=== PATIENT | male | born 1990 | race Caucasian/White ===

== ENCOUNTER → 2022-06-09 | Outpatient (CLI) | payer OTHER, SELFPAY ==
[2022-06-09 15:01] LABS: Absolute Lymphocyte Count 2.63 X10^3/uL (0.83-4.51); Absolute Neutrophil Count 3.9 X10^3/uL (2.0-7.7); Basophil# 0.08 X10^3/uL; Basophil% 1.1 % (0-1); Eosinophil# 0.09 X10^3/uL; Eosinophils% 1.2 % (0-5); Hematocrit 45.8 % (40-54); Hemoglobin 15.3 g/dL (13.0-16.5); Lymphocyte # 2.63 X10^3/ul (0.83-4.51); Lymphocyte % 36.2 % (19-41); Mean Corp Hgb Conc 33.4 g/dL (32-36); Mean Corpuscular Hgb 29.3 pg (27.0-32.0); Mean Corpuscular Volume 87.7 fL (80-94); Mean Platelet Vol. 9.2 fl (6.2-12.0); Monocyte# 0.59 X10^3/uL; Monocyte% 8.1 % (0-10); NRBC Flagged by Analyzer 0 % (0-5); Neutrophil # 3.87 X10^3/uL (2.7-7.7); Neutrophil % 53.3 % (47-70); Platelet Count 330 K/mm3 (150-450); RBC Distribution Width CV 12.1 % (11.6-14.6); RBC Distribution Width SD 38.5 fl (35.1-43.9); Red Blood Count 5.22 M/mm3 (4.6-6.2); White Blood Count 7.3 K/mm3 (4.4-11.0)
[2022-06-09 15:32] LABS: Vitamin B12 487 pg/mL (211-911)
[2022-06-09 15:39] LABS: ALB/GLOB Ratio 1.2 RATIO (0.9-2.4); AST(SGOT) 17 U/L (15-37); Alanine Aminotransfer ALT/SGPT 26 U/L (16-61); Albumin, Serum 4.2 g/dL (3.2-5.0); Alkaline Phosphatase 91 U/L (45-117); Anion Gap 10 (5-15); BUN 15 mg/dL (7-18); BUN/Creat Ratio 19.4 RATIO (10-20); Calcium,Total 9.2 mg/dL (8.5-10.1); Chloride 100 mmol/L (98-107); Cholesterol 148 mg/dL (200); Creatinine, Serum 0.78 mg/dL (0.70-1.30); EST Glomerular Filtration Rate 122 mL/min (>60); Est Glom Filt Rate - Afr Amer 148 mL/min (>60); Ferritin 59 ng/mL (26-388); Globulin 3.5 g/dL (2.2-4.2); Glucose 88 mg/dL (74-106); High Density Lipoprotein 57 mg/dL; Potassium 3.7 mmol/L (3.5-5.1); Protein, Total 7.7 g/dL (6.4-8.2); Sodium Level 137 mmol/L (136-145); Thyroid Stim Hormone (TSH) 1.11 uIU/mL (0.358-3.74); Triglycerides 109 mg/dL; Very Low Density Lipoprotein 22 mg/dL (5-40)
== END | disposition home or self-care (01) ==
LOC: MFPLAB 12:02
PROVIDERS: Visit Provider Family Medicine
DX: Z00.00 Encounter for general adult medical examination without abnormal findings (principal); Z13.0 Encounter for screening for diseases of the blood and blood-forming organs and certain disorders involving the immune mechanism; R53.83 Other fatigue; Z13.1 Encounter for screening for diabetes mellitus; Z13.220 Encounter for screening for lipoid disorders; Z13.29 Encounter for screening for other suspected endocrine disorder
CPT/HCPCS: 36415; 80053; 80061; 82306; 82607; 82728; 83036; 84443; 85025

== ENCOUNTER → 2023-01-18 | Outpatient (CLI) | payer OTHER, SELFPAY ==
[2023-01-20 11:08] LABS: QNTFERON TB Mitogen Value > 10.00 IU/mL (.); QNTFERON TB Nil Value 0.03 IU/mL (.); QNTFERON TB1+ Ag Value 0.04 IU/mL (.); QNTFERON TB2+ Ag Value 0.03 IU/mL (.); QNTIFERON TB Positive Criteria Negative (Negative)
== END | disposition home or self-care (01) ==
LOC: MTLAB 14:06
PROVIDERS: PCP Family Medicine; Referring Provider Dermatology; Visit Provider Dermatology
DX: L40.0 Psoriasis vulgaris (principal); L40.59 Other psoriatic arthropathy; Z79.899 Other long term (current) drug therapy
CPT/HCPCS: 36415; 86480

== ENCOUNTER 2023-04-07 00:33 | Observation (INO) | payer OTHER, SELFPAY ==
[2023-04-07] VITALS (17 sets, daily range): BP systolic 102–140; BP diastolic 58–80; PULSE 0–91; RESP 12–18; TEMP 36.2–37.2; O2SAT 94–100; BMI 25.5; BMI 24.9
--- NOTE | 2023-04-07 00:51 | CT_ITS ---
INDICATION: RLQ abd pain EXAMINATION: CT Abdomen And Pelvis W/ Contrast Injection TECHNIQUE: Helically acquired images were obtained of the abdomen and pelvis following IV contrast. 2-D reconstructions reviewed. A radiation dose optimization technique was used for this scan. IV Contrast dosage and agent: 100 cc [id number] Oral contrast: None. COMPARISON: None. FINDINGS: LOWER CHEST: No acute findings within the imaged lung bases. Heart size within normal limits. LIVER: Small benign 12 mm cyst versus hemangioma within posterior right lobe of liver. No additional follow-up recommended at this time. GALLBLADDER AND BILIARY TREE: No calcified gallstones identified. No gallbladder wall edema demonstrated. No significant biliary ductal dilation. PANCREAS: No discrete mass or peripancreatic edema. SPLEEN: Normal size without concerning lesion. ADRENAL GLANDS: Unremarkable. KIDNEYS AND URETERS: Normal renal size and position. No perinephric edema or hydronephrosis. No concerning lesion. PERITONEUM: No significant free fluid. No abscess or peritoneal free air detected. RETROPERITONEUM: No retroperitoneal mass or pathologic fluid collection. BOWEL: Dilated and inflamed appendix medial to cecum draped over right external iliac vessels. Appendix measures up to 9 mm diameter with small proximal and distal intraluminal appendicoliths. Obstructing proximal appendicolith measures 6 mm diameter. No bowel obstruction. LYMPH NODES: No enlarged mesenteric or retroperitoneal lymph nodes. VESSELS: No acute findings. No abdominal aortic aneurysm. URINARY BLADDER: Unremarkable as visualized. REPRODUCTIVE ORGANS: No pelvic masses. ABDOMINAL WALL: No acute findings or significant hernia defect. BONES: Endplate spondylosis and mild degenerative disc space narrowing at L4-5. CT/Abdomen/Pelvis W IV Cont ONLY IMPRESSION: 1. Appendicitis with no evidence of perforation. 2. Other nonurgent findings within body of report. N.B. : The above Results were Read Back by Wilber Beyer MD to Dr Nicholas Stapleton MD, and understanding confirmed on 04/07/2023 02:02:21 (ET). Electronically Signed: Wilber Beyer MD at 2:03 EST ,
--- NOTE | 2023-04-07 00:52 | EDS_ITS ---
HPI HPI - GI History of Present Illness Chief Complaint: Abd Pain Informant: patient and spouse/S.O. Abdominal Pain/Flank Pain Onset: Today and Hours Context: Gradual Onset Timing: Continuous Quality: Sharp Location: RLQ Current Severity: Moderate Maximum Severity: Moderate Worsened by: Nothing Relieved by: Nothing Nausea/Vomiting/Emesis GI Symptom: Positive for Nausea Onset: Today Severity: Mild Diarrhea/Melena/Hematochezia GI Symptom: Negative for Diarrhea, Melena or Hematochezia Onset: Today Associated Symptoms Associated Symptoms: Negative for Dysuria, Frequency, Hematuria or Urgency Narrative Narrative: 32-year-old male complaining of periumbilical abdominal pain that began around 6:00 tonight and is radiated down to his right lower quadrant and mildly to his right testicle. Associated nausea. No vomiting or diarrhea. No fever. No dysuria. Prior history of kidney stone but that was 12 years ago and he did not exactly member with that felt like. He denies any prior abdominal surgeries. Prior similar symptoms: No Recent Illness/Hospitalization: No PFSH PFSH Medical History ADHD Alcohol abuse Alcohol use disorder Back problem Bone fracture Drug abuse GERD (gastroesophageal reflux disease) History of emotional problems Kidney stones Opioid use disorder Home Medications cholecalciferol (vitamin D3) 125 mcg (5,000 unit) tablet 125 mcg PO DAILY 06/28/22 [History Last Taken Unknown] multivitamin 1 tab PO DAILY 06/28/22 [History Last Taken Unknown] sertraline 100 mg tablet 150 mg (1.5 x 100 mg) PO DAILY #90 tabs 11/16/22 [Rx Last Taken Unknown] lisdexamfetamine 20 mg capsule 20 mg PO QAM 30 days #30 caps 03/22/23 [Rx Last Taken Unknown] Allergy/AdvReac Type Severity Reaction Status Date / Time No Known Allergies Allergy Verified 04/07/23 00:34 Family History Other Alcoholism High cholesterol Hypertension Surgical History no surgical history no surgical history Social History Smoking Status: Never smoker alcohol intake: never substance use type: does not use what type of physical activity do you participate in: none frequency: 1-2 times per week ROS ROS ED ROS Narrative Abdominal pain. Nausea. Review of Systems ROS Unobtainable: Denies due to encephalopathy Constitutional Constitutional ED: Denies chills or fever(s) ENT ENT ED: Denies ear pain Cardiovascular Cardiovascular: Denies chest pain Respiratory/Chest Respiratory/Chest: Denies cough or dyspnea Gastrointestinal Gastrointestinal: Reports abdominal pain and nausea; Denies constipation, diarrhea, melena or vomiting Genitourinary Genitourinary ED: Denies dysuria or hematuria Musculoskeletal Musculoskeletal: Denies arthralgias Integumentary Denies abscess Neurologic Neurologic: Denies headache(s) Psychiatric Psychiatric: Denies anxiety or depression Endocrine Endocrinology: Denies polydipsia or polyphagia Hematologic/Lymphatic Hematologic/Lymphatic: Denies easy bleeding Allergic/Immunologic Allergic/Immunologic ED: Denies mouth swelling or tongue swelling EXAM Physical Exam Narrative Exam Narrative: 32-year-old male vital signs stable afebrile. No acute distress. H EENT exam unremarkable. Neck nontender. Lungs clear to auscultation bilaterally. Heart regular rhythm rate about 65 no murmur. Chest wall and ribs nontender. Abdomen soft periumbilical and primarily right lower quadrant tenderness. No rebound, guarding or rigidity. Nondistended. No hernia or mass. Soft. Nondistended. No signs of obstruction. Moving all 4 extremities. Back nontender. Neurologically is awake alert no focal motor deficits. Const Vital Signs: 04/07/23 00:33 Temperature 97.6 F L Temperature Source Oral Pulse Rate 66 Respiratory Rate 18 Blood Pressure 140/80 H Blood Pressure Mean 100 Pulse Ox 97 Oxygen Delivery Method Room Air Positive well nourished and well developed; Negative for obese, cachectic, contractures or unkempt General Appearance ED: well developed and NAD; Negative for unkempt, cachectic, contractures or pallor Nutritional Appearance: Negative for cachectic or obese HEENT Reports moist mucous membranes normocephalic and atraumatic; Negative for trauma or tenderness Eyes PERRL and EOMs intact bilaterally General Eye ED: Negative for pale conjunctiva or scleral icterus Neck no lymphadenopathy, supple and no JVD General: Negative for tenderness Carotids: Negative for other Lymph Lymphatic: Negative for other Resp normal respiratory effort and clear to auscultation bilaterally Effort and Inspection: Negative for respiratory distress Auscultation: Negative for rales, rhonchi or wheezes Cardio regular rate, regular rhythm, S1 normal heart sound, S2 normal heart sound and no murmurs Rate: Negative for bradycardia or tachycardic Rhythm: Negative for abnormal rhythm GI non-distended and no masses; Negative for non-tender Inspection: Negative for abdominal distention Palpation: soft and tender; Negative for guarding, rigid, hepatomegaly, splenomegaly, hernia, mass, pulsatile mass or rebound tenderness present Back/Spine no CVA tenderness General Back: Negative for CVA tenderness Cervical Spine: Negative for cervical spine tenderness Thoracic Spine / Upper Back: Negative for thoracic spinal tenderness Lumbar Spine / Lower Back: Negative for lumbar spinal tenderness Coccyx: Negative for other Extremity full ROM General Extremety ED: Negative for edema or tenderness General Extremity: Negative for edema Neuro CN's II-XII intact bilaterally and moves all extremities Sensorium / Orientation: alert, oriented to person, oriented to place and oriented to time; Negative for orientation impaired, confused, lethargic or stuporous Motor Exam: strength 5/5 throughout Psych mental status grossly normal and thought process normal Appearance: Negative for unkempt Attitude: No agitated Mood & Affect: Negative for depressed, anxious or tearful Skin no wounds General Skin Exam: Negative for jaundice or pallor Lesions: no lesions Rashes: no rashes Trauma: Negative for abrasion Nails: Negative for discolored MDM MDM MDM Narrative Medical decision making narrative: 32-year-old male abdominal pain right lower quadrant rule out appendicitis was kidney stone versus other etiologies. CAT scan labs pending. Zofran for nausea. Toradol for pain. He has had a history of abuse in the past and did not want narcotic medications if possible. Repeat exam at 1:35 AM patient doing well. He did throw up once after my initial exam. His pain is improved after the Toradol. He still has pain in the right lower quadrant. I reviewed his CAT scan I think is acute appendicitis. Awaiting the formal radiology interpretation. I did speak to general surgery Dr. Tomasz Canales to help the patient admitted to his service and do surgery in the morning. We will start the patient on IV Zosyn. I have discussed all this with the patient and his they are comfortable with the plan. History & Record Review Discussion w/independent historian: Patient and Family Additional record(s) reviewed:: Prior inpatient record, Prior outpatient record, Prior ED visit and Prior labs Lab Data Attestation: I reviewed the patient's lab results. Lab results narrative: CBC shows a normal white count of 10. H&H of 15 and 44. Platelet count 325. Electrolytes show potassium 3.2 gap of 6 BUN and creatinine of 20 and 1. Glucose 112. Liver enzymes are normal. Lipase is 32. CAT scan shows an acute appendicitis. No perforation. No free air. Labs: Laboratory Results - last 24 hr 04/07/23 04/07/23 00:40 01:32 WBC 10.0 RBC 5.15 Hgb 15.2 Hct 44.1 MCV 85.6 MCH 29.5 MCHC 34.5 RDW Std Deviation 37.7 RDW Coeff of Kath 12.0 Plt Count 325 MPV 8.8 Immature Gran % (Auto) 0.200 Neut % (Auto) 46.1 L Lymph % (Auto) 42.6 H [place] % (Auto) 8.7 Eos % (Auto) 1.6 Baso % (Auto) 0.8 Absolute Neuts (auto) 4.6 Absolute Lymphs (auto) 4.26 Nucleated RBC % 0 Sodium 140 Potassium 3.2 L Chloride 104 Carbon Dioxide 30.0 Anion Gap 6 BUN 20 H Creatinine 1.07 Estim Creat Clear Calc 94.11 Est GFR (MDRD) Af Amer 102 Est GFR (MDRD) Non-Af 84 BUN/Creatinine Ratio 18.7 Glucose 112 H Calcium 9.4 Total Bilirubin 0.30 AST 14 L ALT 25 Alkaline Phosphatase 90 Total Protein 7.6 Albumin 4.0 Globulin 3.6 Albumin/Globulin Ratio 1.1 Lipase 32 Urine Color Yellow Urine Clarity Clear Urine pH 7.0 Ur Specific [place] 1.010 Urine Protein Negative Urine Glucose (UA) Normal Urine Ketones Negative Urine Occult Blood Negative Urine Nitrite Negative Urine Bilirubin Negative Urine Urobilinogen Normal Ur Leukocyte Esterase Negative Discharge Plan Dx/Rx/DC Orders Clinical Impression: History of drug abuse, History of kidney stones, Abdominal pain, Acute appendicitis Disposition Disposition: [facility]
[2023-04-07] MEDS: 0.9% Normal Saline (1000mL) 1,000 ML 999 ML IV (01:00)
[2023-04-07 01:03] LABS: Absolute Lymphocyte Count 4.26 X10^3/uL (0.83-4.51); Absolute Neutrophil Count 4.6 X10^3/uL (2.0-7.7); Basophil# 0.08 X10^3/uL; Basophil% 0.8 % (0-1); Eosinophil# 0.16 X10^3/uL; Eosinophils% 1.6 % (0-5); Hematocrit 44.1 % (40-54); Hemoglobin 15.2 g/dL (13.0-16.5); Lymphocyte # 4.26 X10^3/ul (0.83-4.51); Lymphocyte % 42.6 % (19-41); Mean Corp Hgb Conc 34.5 g/dL (32-36); Mean Corpuscular Hgb 29.5 pg (27.0-32.0); Mean Corpuscular Volume 85.6 fL (80-94); Mean Platelet Vol. 8.8 fl (6.2-12.0); Monocyte# 0.87 X10^3/uL; Monocyte% 8.7 % (0-10); NRBC Flagged by Analyzer 0 % (0-5); Neutrophil # 4.61 X10^3/uL (2.7-7.7); Neutrophil % 46.1 % (47-70); Platelet Count 325 K/mm3 (150-450); RBC Distribution Width SD 37.7 fl (35.1-43.9); Red Blood Count 5.15 M/mm3 (4.6-6.2)
[2023-04-07 01:09] LABS: POSITIVE COUNT NO; POSITIVE DIFFERENTIAL NO; POSITIVE MORPHOLOGY NO
--- OUTSIDE RECORDS SUMMARY | 2023-04-07 01:12 | XMS RPT_ITS | CCD ---
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 Name Role Phone Charis Darden Unavailable [phone] Jacob Hernández Unavailable [phone] NIKOLAY JOYCE Attending Unavailable NIKOLAY JOYCE Referring Unavailable BALBINA FONTENOT Primary Care Unavailable Balbina Fontenot Primary Care Provider [phone] Charis Darden Unavailable [phone] BALBINA FONTENOT Primary Care Unavailable GREG GOMEZ Referring UnavailGREG Perez Admitting Unavaila NELSON Sosa Admitting Unavailable BALBINA FONTENOT Primary Care Unavailable NELSON LOO Referring Unavailable Jacob Hernández Unavailable Nikolay Joyce Unavailable Carmine Ventura Unavailable Balbina Fontenot DO Primary Care Provider Charis Darden MD Unavailable Alena Hung MD Unavailable [phone] Alena Hung MD Unavailable Alena Hung MD Unavailable Charis Darden MD Unavailable BALBINA FONTENOT Primary Care Unavailable JACINTO GUADARRAMA Attending Unavailable BALBINA FONTENOT Attending Unavailable BALBINA FONTENOT Primary Care Unavailable Medications Current Medications Medication Drug Class(es) Dates Sig (Normalized) Sig (Original) 0.5 ml bordetella pertussis filamentous hemagglutinin vaccine, inactivated 0.01 mg/ml / bordetella pertussis fimbriae 2/3 vaccine, inactivated 0.01 mg/ml / bordetella pertussis pertactin vaccine, inactivated 0.006 mg/ml / bordetella pertussis toxoid vaccine, inactivated 0.005 mg/ml / diphtheria toxoid vaccine, inactivated 4 unt/ml / tetanus toxoid vaccine, inactivated 10 unt/ml injection (1 source) Inactivated Corynebacterium Diphtheriae Vaccine, Inactivated Clostridium Tetani Vaccine Start: 05-15-2017 End: 05-15-2017 diptheria, tetanus toxoid, acellular pertusssis (ADACEL) 2 Lf-(2.5-5-3-5 mcg)-5Lf/0.5 mL injection Sign this order in conjunction with the immunization order to satisfy [place] Board of Pharmacy Positive ID requirements for immunization orders. 1 mL 0 05/15/2017 05/15/2017 Active magnesium oxide 400 mg oral tablet (4 sources) Start: 02-01-2021 End: 05-02-2021 take 1 tablet by mouth once daily magnesium oxide (MAG-OX) 400 mg (241.3 mg magnesium) tablet Indications: Tension headache Take 1 (one) tablet (400 mg total) by mouth daily . 90 tablet 0 02/01/2021 05/02/2021 Active omeprazole 40 mg delayed release oral capsule (15 sources) Proton Pump Inhibitor Start: 01-29-2017 End: 10-09-2021 take 1 capsule by mouth once daily omeprazole (PRILOSEC) 40 MG capsule Take 1 (one) capsule (40 mg total) by mouth daily . 90 capsule 1 04/12/2021 10/09/2021 Active sertraline 100 mg oral tablet (17 sources) Serotonin Reuptake Inhibitor Start: 12-01-2020 End: 01-27-2022 take 1 tablet by mouth once daily sertraline (ZOLOFT) 100 MG tablet Indications: Major depressive disorder with single episode, in partial remission (HCC) Take 1 (one) tablet (100 mg total) by mouth daily . 90 tablet 1 04/12/2021 10/09/2021 Active Problems Active Problems Problem Classification Problem Date Documented Date Episodic/Chronic Esophageal disorders (16 sources) Gastroesophageal reflux disease; Translations: [Gastro-esophageal reflux disease without esophagitis] Onset: 11-16-2017 11-16-2017 Chronic Headache; including migraine (2 sources) Tension-type headache; Translations: [Tension-type headache, unspecified, not intractable] Chronic Immunizations and screening for infectious disease (1 source) Vaccination needed; Translations: [Encounter for immunization] Episodic Mood disorders (17 sources) Major depressive disorder; Translations: [Major depression single episode, in partial remission] Onset: 01-21-2019 01-21-2019 Chronic Mood disorders (1 source) Major depressive disorder, single episode, unspecified; Translations: [Major depressive disorder with current active episode, unspecified depression episode severity, unspecified whether recurrent] Unclassified (1 source) Injury of right wrist; Translations: [Injury of right wrist, initial encounter] Past or Other Problems Problem Classification Problem Date Documented Da te Episodic/Chronic Conditions associated with dizziness or vertigo (1 source) Dizziness; Translations: [Dizziness] Episodic Other lower respiratory disease (5 sources) Cough; Translations: [Cough] Onset: 03-17-2020 03-17-2020 Episodic Residual codes; unclassified (1 source) Family history of atrial fibrillation; Translations: [Family history of atrial fibrillation] Episodic Unclassified (20 sources) Patient encounter status; Translations: [Annual physical exam] Onset: 11-16-2017 Resolved: 02-25-2019 11-16-2017 Results Test Name Value Interpretation Reference Range Facil ity Vital Signs Date Time Vital Sign Value Performing Clinician Facility 02-01-2021 [id number] Body height 175.3 cm Balbina Fontenot DO Work Phone: [facility] 02-01-2021 09:11-0400 Body mass index (BMI) [Ratio] 25.84 kg/m2 Balbina Fontenot DO Work Phone: [facility] 02-01-2021 09:11-0400 Body temperature 98.49 [degF] Balbina Fontenot DO Work Phone: [facility] 02-01-2021 09:11-0400 Body weight 79.38 kg Balbina Fontenot DO Work Phone: [facility] 02-01-2021 09:11-0400 Diastolic blood pressure 67 mm[Hg] Balbina Fontenot DO Work Phone: [facility] 02-01-2021 09:11-0400 Heart rate 67 /min Balbina Fontenot DO Work Phone: [facility] 02-01-2021 09:11-0400 Respiratory rate 18 /min Balbina Fontenot DO Work Phone: [facility] 02-01-2021 09:11-0400 SaO2% (BldA) [Mass fraction] 96 % Balbina Fontenot DO Work Phone: [facility] 02-01-2021 09:11-0400 Systolic blood pressure 108 mm[Hg] Balbina Fontenot DO Work Phone: [facility] 02-23-2020 13:06-0500 BMI (Body Mass Index) 25.1 kg/m2 Balbina Fontenot [facility] 02-23-2020 13:06-0500 Body Temperature 97.59 [degF] Balbina Fontenot [facility] 02-23-2020 13:06-0500 Body weight 77.11 kg Balbina Fontenot [facility] 02-23-2020 13:06-0500 BP Diastolic 55 mm[Hg] Balbina Fontenot [facility] 02-23-2020 13:06-0500 BP Systolic 115 mm[Hg] Balbina Fontenot [facility] 02-23-2020 13:06-0500 Height 175.3 cm [facility] 02-23-2020 13:06-0500 Pulse (Heart Rate) 60 /[facility] 13:06-0500 Pulse Oximetry 97 % [facility] 01-05-2020 15:19-0400 BMI (Body Mass Index) 24.72 kg/m2 [facility] 01-05-2020 15:19-0400 Body Temperature 98.29 [degF] Balbina Fontenot [facility] 01-05-2020 15:19-0400 Body weight 75.93 kg [facility] 01-05-2020 15:19-0400 BP Diastolic 75 mm[Hg] [facility] 01-05-2020 15:19-0400 BP Systolic 115 mm[Hg] Balbina Fontenot [facility] 01-05-2020 15:19-0400 Height 175.3 cm Balbina Fontenot [facility] 01-05-2020 15:19-0400 Pulse (Heart Rate) 55 /min Balbina Fontenot [facility] 01-05-2020 15:19-0400 Pulse Oximetry 96 % [facility]-25-2019 08:08-0500 BMI (Body Mass Index) 25.77 kg/m2 [facility] 02-25-2019 08:08-0500 Body Temperature 98.2 [degF] [facility] 02-25-2019 08:08-0500 Body weight 78.02 kg [facility] 02-25-2019 08:08-0500 BP Diastolic 73 mm[Hg] [facility] 02-25-2019 08:08-0500 BP Systolic 128 mm[Hg] [facility] 02-25-2019 08:08-0500 Height 174 cm [facility] 02-25-2019 08:08-0500 Pulse (Heart Rate) 52 /min [facility] 02-25-2019 08:08-0500 Pulse Oximetry 94 % [facility] 02-25-2019 08:08-0500 Respiratory Rate 16 /min [facility] 01-21-2019 14:55-0400 BMI (Body Mass Index) 25.88 kg/m2 Balbina [facility] 01-21-2019 14:55-0400 Body Temperature 98.29 [degF] [facility] 01-21-2019 14:55-0400 Body weight 78.34 kg [facility] 01-21-2019 14:55-0400 BP Diastolic 83 mm[Hg] Balbina [facility] 01-21-2019 14:55-0400 BP Systolic 146 mm[Hg] [facility] 01-21-2019 14:55-0400 Height 174 cm [facility] 01-21-2019 14:55-0400 Pulse (Heart Rate) 76 /min [facility] 01-21-2019 14:55-0400 Pulse Oximetry 97 % [facility] 11-25-2018 13:01-0400 BMI (Body Mass Index) 24.83 kg/m2 Balbina Fontenot [facility] 11-25-2018 13:01-0400 Body Temperature 98.2 [degF] Balbina Fontenot [facility] 11-25-2018 13:01-0400 Body weight 75.16 kg Balbina Fontenot [facility] 11-25-2018 13:01-0400 BP Diastolic 74 mm[Hg] Balbina Fontenot [facility] 11-25-2018 13:01-0400 BP Systolic 115 mm[Hg] Balbina Fontenot [facility] 11-25-2018 13:01-0400 Height 174 cm Balbina Fontenot [facility] 11-25-2018 13:01-0400 Pulse (Heart Rate) 49 /min Balbina Fontenot [facility] 11-25-2018 13:01-0400 Pulse Oximetry 98 % Balbina Fontenot [facility] 11-16-2017 09:04-0400 BMI (Body Mass Index) 24.63 kg/m2 Jacob Hernández [facility] 11-16-2017 09:04-0400 Body Temperature 98.2 [degF] Jacob Hernández [facility] 11-16-2017 09:04-0400 BP Diastolic 73 mm[Hg] Jacob Hernández [facility] 11-16-2017 09:04-0400 BP Systolic 116 mm[Hg] Jacob Hernández [facility] 11-16-2017 09:04-0400 Height 172.7 cm Jacob Hernández [facility] 11-16-2017 09:04-0400 Pulse (Heart Rate) 56 /min Jacob Hernández [facility] 11-16-2017 09:04-0400 Pulse Oximetry 95 % Jacob Hernández [facility] 11-16-2017 09:04-0400 Weight 73.48 kg Jacob Hernández [facility] 05-15-2017 07:41-0500 BMI (Body Mass Index) 24.66 kg/m2 Charis Darden [facility] Work Phone: 05-15-2017 07:41-0500 Body Temperature 97.7 [degF] Charis Darden [facility] Work Phone: 05-15-2017 07:41-0500 BP Diastolic 70 mm[Hg] Charis Darden [facility] Work Phone: 05-15-2017 07:41-0500 BP Systolic 105 mm[Hg] Charis Darden [facility] Work Phone: 05-15-2017 07:41-0500 Height 175.3 cm Charis Darden [facility] Work Phone: 05-15-2017 07:41-0500 Pulse (Heart Rate) 47 /min Charisana Darden [facility] Work Phone: 05-15-2017 07:41-0500 Pulse Oximetry 94 % Charis Darden [facility] Work Phone: 05-15-2017 07:41-0500 Respiratory Rate 16 /min Charisana Darden [facility] Work Phone: 05-15-2017 07:41-0500 Weight 75.75 kg Charisana Darden [facility] Work Phone: Encounters Encounter Date Encounter Type Care Provider Facility Start: 04-12-2021 Refill Balbina young DO Work Phone: [facility] Physicians Procedures Date Procedure Procedure Detail Performing Clinician Start: 07-21-2019 Radex wrist complete minimum 3 views Osvaldo Schwartz Work Phone: Start: 01-21-2019 Adult depression screening assessment Balbina Fontenot Start: 11-25-2018 12 lead ECG Balbina post Work Phone: Start: 11-25-2018 Adult depression screening assessment Balbina Fontenot Plan of Treatment Date Care Activity Detail Author Start: 05-15-2027 Tetanus vaccination [facility] Start: 02-01-2022 History and physical examination, annual for health maintenance Wellness Visit [facility] Start: 12-02-2021 Depression Remission Assessment (PHQ9) Depression Remission Assessment (PHQ9) [facility] Start: 01-04-2021 History and physical examination, annual for health maintenance Wellness Visit [facility] Start: 01-04-2021 End: 01-04-2021 Patient encounter procedure 01/04/2021 Office Visit Primary Care Balbina Fontenot, [address] [place] [address] Dr Farmer [address] [place] [address] [facility] Start: 12-08-2020 Influenza vaccination Sequential Influenza Vaccine (#1) [facility] Start: 01-22-2020 Depression screening using PHQ-9 (Patient Health Questionnaire 9) score DEPRESSION SCREENING (PHQ9) [facility] Start: 12-09-2019 Influenza vaccination given Sequential Influenza Vaccine (#1) [facility] Start: 11-26-2019 Depression screening using PHQ-9 (Patient Health Questionnaire 9) score DEPRESSION SCREENING (PHQ9) [facility] Start: 11-26-2019 History and physical examination, annual for health maintenance Wellness Visit [facility] Start: 11-22-2019 Depression Remission Assessment (PHQ9) Depression Remission Assessment (PHQ9) [facility] Start: 02-25-2019 End: 02-25-2019 Office Visit 02/25/2019 Office Visit Primary Care Balbina Fontenot, [address] Farmer [address] [place] [id number] [phone] [facility] Start: 12-08-2018 Influenza vaccination given Sequential Influenza Vaccine (#1) [facility] Start: 11-16-2018 History and physical examination, annual for health maintenance Wellness Visit [facility] Start: 12-08-2017 Influenza vaccination SEQUENTIAL INFLUENZA VACCINE (#1) [facility] Start: 2006 Hepatitis C antibody, confirmatory test Hepatitis C Screening [facility] Start: 2006 Hepatitis C screening Hepatitis C Screening [facility] Start: 12-22-2003 HIV screening HIV Screening [facility] Start: 2000 COVID-19 Vaccine (1) COVID-19 Vaccine (1) [facility] Start: 1988 Screening for substance abuse SUBSTANCE ABUSE SCREENING (AUDIT-C) [facility] End: 11-26-2019 Complete blood count (hemogram) panel - Blood by Automated count CBC Lab Routine Annual physical exam Dizziness 1 Occurrences starting 11/25/2018 until 11/26/2019 [facility] Immunizations Immunization Date Immunization Notes Care Provider Fa ciliata 04-11-2021 Pfizer SARS-CoV-2 Vaccination Jacinto Guadarrama MA [facility] 04-11-2021 COVID-19 vacc,mRNA,Pfizer,,PF, (PFIZER-BIONTECH COVID-19 VACCINE) injection Jacinto Guadarrama MA [facility] 02-01-2021 influenza, injectabl e, quadrivalent, preservative free Balbina Fontenot DO Work Phone: [facility] 02-01-2021 flu vacc [id number] mos up,PF, (FLUZONE QUAD) injection Balbina Fontenot DO Work Phone: [facility] 05-15-2017 tetanus toxoid, redu gini diphtheria toxoid, and acellular pertussis vaccine, adsorbed; Translations: [TDAP] Charis Darden [facility] 11-17-2011 hepatitis B vaccine, adult dosage Balbina Fontenot DO Work Phone: [facility] 11-17-2011 tetanus toxoid, redu gini diphtheria toxoid, and acellular pertussis vaccine, adsorbed Balbina Fontenot DO Work Phone: [facility] Payers Date Payer Category Payer Unknown [id number] 2019 Unknown SUHA MCCARTHY/PREF/HMO/PPO xxxxxxxxxxxx 2019-Present xxxxxxxxxxxx [id number] 2019 Unknown [id number] 2019 Unknown SUHA MCCARTHY/PREF/HMO/PPO [id number] 2019-Present [phone] [address] [place] [address] [id number] 2015 Unknown xxxxxxxxx [id number] 1988 Unknown [id number] 1988 Unknown [id number] 1988 Unknown [id number] 1988 Unknown [id number] 1988 Unknown [id number] Unknown [id number] Social History Date Type Detail Facility Start: 06-13-2016 End: 05-15-2017 Tobacco smoking status NHIS Never smoker [facility] Start: 1990 Sex Assigned At Not on file [facility] [employer] Work Phone: Start: 02-25-2019 End: 02-01-2021 Alcohol intake Current drinker of alcohol (finding) [facility] Start: 01-21-2019 End: 02-01-2021 History SDOH Social Connections Get Together 3 [facility] Start: 11-25-2018 End: 02-01-2021 History SDOH Food Worry 1 [facility] Start: 06-13-2016 Alcohol Comment 2-3 drinks 2-3 times a week [facility] Start: 06-13-2016 End: 01-05-2020 Tobacco use and exposure Never used [facility] Start: 01-05-2020 End: 02-01-2021 History SDOH Financial 5 [facility] Start: 01-05-2020 End: 02-01-2021 History SDOH Transport Med 2 [facility] Exposure to SARS-CoV -2 (event) Not sure [facility] Start: 11-25-2018 History SDOH Social Connections Get Together 4 [facility] History of Present illness Narrative 02-03-2021 Judith Storm MD - 02/03/2021 11:17 AM Marie Fontenot DO - 02/01/2021 9:14 AM EDT Note Date & Type Note Facility 02-03-2021 History of Presen t illness Narrative I have personally seen and examined the patient independently of the resident physician. I have reviewed the history, physical, diagnosis and care plan with the resident physician, Balbina Fontenot DO. I confirm the assessment and treatment plan: Diagnoses and all orders for this visit: Encounter for wellness examination in adult - Influenza IIV4 6mo or >,Fluzone Quad Tension headache - magnesium oxide (MAG-OX) 400 mg (241.3 mg magnesium) tablet; Take 1 (one) tablet (400 mg total) by mouth daily . Major depressive disorder with single episode, in partial remission (HCC) - sertraline (ZOLOFT) 100 MG tablet; Take 1 (one) tablet (100 mg total) by mouth daily . Assessment/Plan: This is a 30-year-old male with history of anxiety/depression who presents for physical and headaches. Diagnoses and all orders for this visit: Encounter for wellness examination in adult - Influenza IIV4 6mo or >,Fluzone Quad Noted relatively healthy BMI and blood pressure Encourage patient to resume routine physical activity as life circumstances allow Encouraged healthful dietary habits Discussed blood screenings, given lack of medical comorbidities patient defers today Okay to update flu shot today Otherwise up-to-date on routine screenings and vaccinations Repeat physical in 1 year Tension headache - magnesium oxide (MAG-OX) 400 mg (241.3 mg magnesium) tablet; Take 1 (one) tablet (400 mg total) by mouth daily . Presentation most consistent with tension type headaches I do suspect this is due to disturbed sleep habits and increased life stressor after the of his recent child No red flag symptoms We did recommend sleep hygiene, gentle neck stretching as much as possible We will also give magnesium for a short course to see if this can help reduce intensity and frequency of headaches Follow-up in 2 to 3 months or sooner if headaches worsening or changing Major depressive disorder with single episode, in partial remission (HCC) - sertraline (ZOLOFT) 100 MG tablet; Take 1 (one) tablet (100 mg total) by mouth daily . Symptoms still present but not severe Patient is happy with Zoloft therapy I do think his headache and sleep disturbances are somewhat contributing to this issue Treatment for headache as above Did distribute resources for counseling Follow-up in 2 to 3 months or sooner if new issues Subjective: Jacob Rojas is a 30 y.o. 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 Similar to previous Drinks: Up to 2 cups of coffee a day, 48 ounces of water per day Vitamins/Supplements: None Exercise: Not much exercise currently, gym 1-2 times per month, also walks a dog Sleep: Denies snoring, goes to bed at 9, gets up at 7, has a baby he wakes for twice at night Caffeine: 2 cups of coffee per day Mood: Episodes of depression still an issue, some low motivation and exhaustion, decreased mood intermittently. Zoloft is helping. No red flag symptoms. Alcohol: Recovered drinker, no alcohol recently Smoking: No Drug Use: Denies Immunizations: Wants flu shot today Headaches Patient reports that for about the last month, he has began to develop a left-sided headache. It is dull to throbbing in nature. It starts in his left occipital region and seems to band around to his frontal region. It improves with ibuprofen. There is no associated photophobia, nausea, vomiting, visual disturbance, weakness, numbness, or other neurological deficit. He has no known history of migraines or severe head injuries. Of note, his daughter was born roughly 1 month ago. He does wake up twice nightly to help provide care for the infant. He does admit to some added stress in his life, and thinks this may be contributing. The following portions of the patient's history were reviewed and updated as appropriate: allergies, current medications, past family history, past medical history, past social history, past surgical history and problem list. Review of Systems Constitutional: Negative for activity change and fever. HENT: Negative for hearing loss and sore throat. Eyes: Negative for visual disturbance. Respiratory: Negative for cough, chest tightness, shortness of breath and wheezing. Cardiovascular: Negative for chest pain. Genitourinary: Negative for difficulty urinating and dysuria. Musculoskeletal: Negative for joint swelling. Skin: Negative for rash. Neurological: Positive for headaches. Negative for dizziness, weakness and numbness. Psychiatric/Behavioral: Positive for dysphoric mood and sleep disturbance. Negative for self-injury and suicidal ideas. The patient is not nervous/anxious and is not hyperactive. All other systems reviewed and are negative. Objective: PACU Vitals 02/01/21 0911 BP: 108/67 Pulse: 67 Resp: 18 Temp: 98.5 F (36.9 C) SpO2: 96% Physical Exam Vitals and nursing note reviewed. Constitutional: General: He is not in acute distress. Appearance: He is well-developed. He is not diaphoretic. Comments: Patient appears tired HENT: Head: Normocephalic and atraumatic. Mouth/Throat: Pharynx: No oropharyngeal exudate. Eyes: General: Right eye: No discharge. Left eye: No discharge. Conjunctiva/sclera: Conjunctivae normal. Pupils: Pupils are equal, round, and reactive to light. Cardiovascular: Rate and Rhythm: Normal rate and regular rhythm. Heart sounds: Normal heart sounds. No murmur heard. No friction rub. No gallop. Pulmonary: Effort: Pulmonary effort is normal. No respiratory distress. Breath sounds: Normal breath sounds. No wheezing or rales. Abdominal: General: Bowel sounds are normal. Palpations: Abdomen is soft. There is no mass. Tenderness: There is no abdominal tenderness. There is no guarding. Musculoskeletal: General: No deformity. Normal range of motion. Skin: General: Skin is warm and dry. Findings: No erythema or rash. Neurological: Mental Status: He is alert and oriented to person, place, and time. Sensory: No sensory deficit. Motor: No abnormal muscle tone. Coordination: Coordination normal. Psychiatric: Behavior: Behavior normal. Thought Content: Thought content normal. Judgment: Judgment normal. Hearing and vision grossly normal. For any new medications prescribed today, patient was educated about indications for the medication, how to take the medication and potential side effects of the medications. This note was written partially with [employer] dictation software. Though attempts are made to proofread, errors in grammar or spelling may be present. Depression Screening 11/25/2018 01/21/2019 02/01/2021 Little interest or pleasure in doing things 1 2 1 Feeling down, depressed, or hopeless 1 1 2 PHQ-2 Total Score 2 3 3 Trouble falling or staying asleep, or sleeping too much 1 2 2 Feeling tired or having little energy 1 3 1 Poor appetite or overeating 2 2 2 Feeling bad about yourself - or that you are a failure or have let yourself or your family down 1 2 2 Trouble concentrating on things, such as reading the newspaper or watching television 1 3 2 Moving or speaking so slowly that other people could have noticed. Or the opposite - being so fidgety or restless that you have been moving around a lot more than usual 0 0 0 Thoughts that you would be better off , or of hurting yourself in some way 0 0 0 PHQ-9 Total Score 8 15 12 If you checked off any problems, how difficult have these problems made it for you to do your work, take care of things at home, or get along with other people? Somewhat difficult Somewhat difficult Somewhat difficult documented in this encounter [facility] Instructions 02-01-2021 Patient Instructions Note Date & Type Note Facility 02-01-2021 Instructions Balbina Fontenot DO - 02/01/2021 9:35 AM EDT Images from the original note were not included. Neck: Exercises Introduction Here are some examples of exercises for you to try. The exercises may be suggested for a condition or for rehabilitation. Start each exercise slowly. Ease off the exercises if you start to have pain. You will be told when to start these exercises and which ones will work best for you. How to do the exercises Neck stretch 1. This stretch works best if you keep your shoulder down as you lean away from it. To help you remember to do this, start by relaxing your shoulders and lightly holding on to your thighs or your chair. 2. Tilt your head toward your shoulder and hold for 15 to 30 seconds. Let the weight of your head stretch your muscles. 3. If you would like a little added stretch, use your hand to gently and steadily pull your head toward your shoulder. For example, keeping your right shoulder down, lean your head to the left. 4. Repeat 2 to 4 times toward each shoulder. Diagonal neck stretch 1. Turn your head slightly toward the direction you will be stretching, and tilt your head diagonally toward your chest and hold for 15 to 30 seconds. 2. If you would like a little added stretch, use your hand to gently and steadily pull your head forward on the diagonal. 3. Repeat 2 to 4 times toward each side. Dorsal glide stretch The dorsal glide stretches the back of the neck. If you feel pain, do not glide so far back. Some people find this exercise easier to do while lying on their backs with an ice pack on the neck. 1. Sit or stand tall and look straight ahead. 2. Slowly tuck your chin as you glide your head backward over your body 3. Hold for a count of 6, and then relax for up to 10 seconds. 4. Repeat 8 to 12 times. Chest and shoulder stretch 1. Sit or stand tall and glide your head backward as in the dorsal glide stretch. 2. Raise both arms so that your hands are next to your ears. 3. Take a deep breath, and as you breathe out, lower your elbows down and behind your back. You will feel your shoulder blades slide down and together, and at the same time you will feel a stretch across your chest and the front of your shoulders. 4. Hold for about 6 seconds, and then relax for up to 10 seconds. 5. Repeat 8 to 12 times. Strengthening: Hands on head 1. Move your head backward, forward, and side to side against gentle pressure from your hands, holding each position for about 6 seconds. 2. Repeat 8 to 12 times. Follow-up care is a smith part of your treatment and safety. Be sure to make and go to all appointments, and call your doctor if you are having problems. It's also a good idea to know your test results and keep a list of the medicines you take. Where can you learn more? Log into your personal health record on [email or web address] and enter P975 in the Education box to learn more about Neck: Exercises. Current as of: October 07, 2020 Content Version: 13.0 [employer]. Care instructions adapted under license by your healthcare professional. If you have questions about a medical condition or this instruction, always ask your healthcare professional. [employer] disclaims any warranty or liability for your use of this information. Learning About Sleeping Well What does sleeping well mean? Sleeping well means getting enough sleep. How much sleep is enough varies among people. The number of hours you sleep is not as important as how you feel when you wake up. If you do not feel refreshed, you probably need more sleep. Another sign of not getting enough sleep is feeling tired during the day. The average total nightly sleep time is 7 to 8 hours. Healthy adults may need a little more or a little less than this. Why is getting enough sleep important? Getting enough quality sleep is a basic part of good health. When your sleep suffers, your mood and your thoughts can suffer too. You may find yourself feeling more grumpy or stressed. Not getting enough sleep also can lead to serious problems, including injury, accidents, anxiety, and depression. What might cause poor sleeping? Many things can cause sleep problems, including: Stress. Stress can be caused by fear about a single event, such as giving a speech. Or you may have ongoing stress, such as worry about work or school. Depression, anxiety, and other mental or emotional conditions. Changes in your sleep habits or surroundings. This includes changes that happen where you sleep, such as noise, light, or sleeping in a different bed. It also includes changes in your sleep pattern, such as having jet lag or working a late shift. Health problems, such as pain, breathing problems, and restless legs syndrome. Lack of regular exercise. How can you help yourself? Here are some tips that may help you sleep more soundly and wake up feeling more refreshed. Your sleeping area Use your bedroom only for sleeping and sex. A bit of light reading may help you fall asleep. But if it doesn't, do your reading elsewhere in the house. Don't watch TV in bed. Be sure your bed is big enough to stretch out comfortably, especially if you have a sleep partner. Keep your bedroom quiet, dark, and cool. Use curtains, blinds, or a sleep mask to block out light. To block out noise, use earplugs, soothing music, or a white noise machine. Your evening and bedtime routine Create a relaxing bedtime routine. You might want to take a warm shower or bath, listen to soothing music, or drink a cup of noncaffeinated tea. Go to bed at the same time every night. And get up at the same time every morning, even if you feel tired. What to avoid Limit caffeine (coffee, tea, caffeinated sodas) during the day, and don't have any for at least 4 to 6 hours before bedtime. Don't drink alcohol before bedtime. Alcohol can cause you to wake up more often during the night. Don't smoke or use tobacco, especially in the evening. Nicotine can keep you awake. Don't take naps during the day, especially close to bedtime. Don't lie in bed awake for too long. If you can't fall asleep, or if you wake up in the middle of the night and can't get back to sleep within 15 minutes or so, get out of bed and go to another room until you feel sleepy. Don't take medicine right before bed that may keep you awake or make you feel hyper or energized. Your doctor can tell you if your medicine may do this and if you can take it earlier in the day. If you can't sleep Imagine yourself in a peaceful, pleasant scene. Focus on the details and feelings of being in a place that is relaxing. Get up and do a quiet or boring activity until you feel sleepy. Don't drink any liquids after 6 p.m. if you wake up often because you have to go to the bathroom. Where can you learn more? Log into your personal health record on [email or web address] and enter J942 in the Education box to learn more about Learning About Sleeping Well. Current as of: September 22, 2020 Content Version: 13.0 [employer]. Care instructions adapted under license by your healthcare professional. If you have questions about a medical condition or this instruction, always ask your healthcare professional. [employer] disclaims any warranty or liability for your use of this information. documented in this encounter [facility] Instructions 02-01-2021 Patient Instructions Note Date & Type Note Facility 02-01-2021 Instructions Balbina Fontenot DO - 02/01/2021 9:35 AM EDT Images from the original note were not included. Neck: Exercises Introduction Here are some examples of exercises for you to try. The exercises may be suggested for a condition or for rehabilitation. Start each exercise slowly. Ease off the exercises if you start to have pain. You will be told when to start these exercises and which ones will work best for you. How to do the exercises Neck stretch 1. This stretch works best if you keep your shoulder down as you lean away from it. To help you remember to do this, start by relaxing your shoulders and lightly holding on to your thighs or your chair. 2. Tilt your head toward your shoulder and hold for 15 to 30 seconds. Let the weight of your head stretch your muscles. 3. If you would like a little added stretch, use your hand to gently and steadily pull your head toward your shoulder. For example, keeping your right shoulder down, lean your head to the left. 4. Repeat 2 to 4 times toward each shoulder. Diagonal neck stretch 1. Turn your head slightly toward the direction you will be stretching, and tilt your head diagonally toward your chest and hold for 15 to 30 seconds. 2. If you would like a little added stretch, use your hand to gently and steadily pull your head forward on the diagonal. 3. Repeat 2 to 4 times toward each side. Dorsal glide stretch The dorsal glide stretches the back of the neck. If you feel pain, do not glide so far back. Some people find this exercise easier to do while lying on their backs with an ice pack on the neck. 1. Sit or stand tall and look straight ahead. 2. Slowly tuck your chin as you glide your head backward over your body 3. Hold for a count of 6, and then relax for up to 10 seconds. 4. Repeat 8 to 12 times. Chest and shoulder stretch 1. Sit or stand tall and glide your head backward as in the dorsal glide stretch. 2. Raise both arms so that your hands are next to your ears. 3. Take a deep breath, and as you breathe out, lower your elbows down and behind your back. You will feel your shoulder blades slide down and together, and at the same time you will feel a stretch across your chest and the front of your shoulders. 4. Hold for about 6 seconds, and then relax for up to 10 seconds. 5. Repeat 8 to 12 times. Strengthening: Hands on head 1. Move your head backward, forward, and side to side against gentle pressure from your hands, holding each position for about 6 seconds. 2. Repeat 8 to 12 times. Follow-up care is a smith part of your treatment and safety. Be sure to make and go to all appointments, and call your doctor if you are having problems. It's also a good idea to know your test results and keep a list of the medicines you take. Where can you learn more? Log into your personal health record on [email or web address] and enter P975 in the Education box to learn more about Neck: Exercises. Current as of: October 07, 2020 Content Version: 13.0 [employer]. Care instructions adapted under license by your healthcare professional. If you have questions about a medical condition or this instruction, always ask your healthcare professional. [employer] disclaims any warranty or liability for your use of this information. Learning About Sleeping Well What does sleeping well mean? Sleeping well means getting enough sleep. How much sleep is enough varies among people. The number of hours you sleep is not as important as how you feel when you wake up. If you do not feel refreshed, you probably need more sleep. Another sign of not getting enough sleep is feeling tired during the day. The average total nightly sleep time is 7 to 8 hours. Healthy adults may need a little more or a little less than this. Why is getting enough sleep important? Getting enough quality sleep is a basic part of good health. When your sleep suffers, your mood and your thoughts can suffer too. You may find yourself feeling more grumpy or stressed. Not getting enough sleep also can lead to serious problems, including injury, accidents, anxiety, and depression. What might cause poor sleeping? Many things can cause sleep problems, including: Stress. Stress can be caused by fear about a single event, such as giving a speech. Or you may have ongoing stress, such as worry about work or school. Depression, anxiety, and other mental or emotional conditions. Changes in your sleep habits or surroundings. This includes changes that happen where you sleep, such as noise, light, or sleeping in a different bed. It also includes changes in your sleep pattern, such as having jet lag or working a late shift. Health problems, such as pain, breathing problems, and restless legs syndrome. Lack of regular exercise. How can you help yourself? Here are some tips that may help you sleep more soundly and wake up feeling more refreshed. Your sleeping area Use your bedroom only for sleeping and sex. A bit of light reading may help you fall asleep. But if it doesn't, do your reading elsewhere in the house. Don't watch TV in bed. Be sure your bed is big enough to stretch out comfortably, especially if you have a sleep partner. Keep your bedroom quiet, dark, and cool. Use curtains, blinds, or a sleep mask to block out light. To block out noise, use earplugs, soothing music, or a white noise machine. Your evening and bedtime routine Create a relaxing bedtime routine. You might want to take a warm shower or bath, listen to soothing music, or drink a cup of noncaffeinated tea. Go to bed at the same time every night. And get up at the same time every morning, even if you feel tired. What to avoid Limit caffeine (coffee, tea, caffeinated sodas) during the day, and don't have any for at least 4 to 6 hours before bedtime. Don't drink alcohol before bedtime. Alcohol can cause you to wake up more often during the night. Don't smoke or use tobacco, especially in the evening. Nicotine can keep you awake. Don't take naps during the day, especially close to bedtime. Don't lie in bed awake for too long. If you can't fall asleep, or if you wake up in the middle of the night and can't get back to sleep within 15 minutes or so, get out of bed and go to another room until you feel sleepy. Don't take medicine right before bed that may keep you awake or make you feel hyper or energized. Your doctor can tell you if your medicine may do this and if you can take it earlier in the day. If you can't sleep Imagine yourself in a peaceful, pleasant scene. Focus on the details and feelings of being in a place that is relaxing. Get up and do a quiet or boring activity until you feel sleepy. Don't drink any liquids after 6 p.m. if you wake up often because you have to go to the bathroom. Where can you learn more? Log into your personal health record on [email or web address] and enter J942 in the Education box to learn more about Learning About Sleeping Well. Current as of: September 22, 2020 Content Version: 13.0 [employer]. Care instructions adapted under license by your healthcare professional. If you have questions about a medical condition or this instruction, always ask your healthcare professional. [employer] disclaims any warranty or liability for your use of this information. documented in this encounter [facility] History of Present illness Narrative 02-01-2021 Balbina Fontenot DO - 02/01/2021 9:14 AM EDT Note Date & Type Note Facility 02-01-2021 History of Presen t illness Narrative Assessment/Plan: This is a 30-year-old male with history of anxiety/depression who presents for physical and headaches. Diagnoses and all orders for this visit: Encounter for wellness examination in adult - Influenza IIV4 6mo or >,Fluzone Quad Noted relatively healthy BMI and blood pressure Encourage patient to resume routine physical activity as life circumstances allow Encouraged healthful dietary habits Discussed blood screenings, given lack of medical comorbidities patient defers today Okay to update flu shot today Otherwise up-to-date on routine screenings and vaccinations Repeat physical in 1 year Tension headache - magnesium oxide (MAG-OX) 400 mg (241.3 mg magnesium) tablet; Take 1 (one) tablet (400 mg total) by mouth daily . Presentation most consistent with tension type headaches I do suspect this is due to disturbed sleep habits and increased life stressor after the of his recent child No red flag symptoms We did recommend sleep hygiene, gentle neck stretching as much as possible We will also give magnesium for a short course to see if this can help reduce intensity and frequency of headaches Follow-up in 2 to 3 months or sooner if headaches worsening or changing Major depressive disorder with single episode, in partial remission (HCC) - sertraline (ZOLOFT) 100 MG tablet; Take 1 (one) tablet (100 mg total) by mouth daily . Symptoms still present but not severe Patient is happy with Zoloft therapy I do think his headache and sleep disturbances are somewhat contributing to this issue Treatment for headache as above Did distribute resources for counseling Follow-up in 2 to 3 months or sooner if new issues Subjective: Jacob Rojas is a 30 y.o. 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 Similar to previous Drinks: Up to 2 cups of coffee a day, 48 ounces of water per day Vitamins/Supplements: None Exercise: Not much exercise currently, gym 1-2 times per month, also walks a dog Sleep: Denies snoring, goes to bed at 9, gets up at 7, has a baby he wakes for twice at night Caffeine: 2 cups of coffee per day Mood: Episodes of depression still an issue, some low motivation and exhaustion, decreased mood intermittently. Zoloft is helping. No red flag symptoms. Alcohol: Recovered drinker, no alcohol recently Smoking: No Drug Use: Denies Immunizations: Wants flu shot today Headaches Patient reports that for about the last month, he has began to develop a left-sided headache. It is dull to throbbing in nature. It starts in his left occipital region and seems to band around to his frontal region. It improves with ibuprofen. There is no associated photophobia, nausea, vomiting, visual disturbance, weakness, numbness, or other neurological deficit. He has no known history of migraines or severe head injuries. Of note, his daughter was born roughly 1 month ago. He does wake up twice nightly to help provide care for the infant. He does admit to some added stress in his life, and thinks this may be contributing. The following portions of the patient's history were reviewed and updated as appropriate: allergies, current medications, past family history, past medical history, past social history, past surgical history and problem list. Review of Systems Constitutional: Negative for activity change and fever. HENT: Negative for hearing loss and sore throat. Eyes: Negative for visual disturbance. Respiratory: Negative for cough, chest tightness, shortness of breath and wheezing. Cardiovascular: Negative for chest pain. Genitourinary: Negative for difficulty urinating and dysuria. Musculoskeletal: Negative for joint swelling. Skin: Negative for rash. Neurological: Positive for headaches. Negative for dizziness, weakness and numbness. Psychiatric/Behavioral: Positive for dysphoric mood and sleep disturbance. Negative for self-injury and suicidal ideas. The patient is not nervous/anxious and is not hyperactive. All other systems reviewed and are negative. Objective: PACU Vitals 02/01/21 0911 BP: 108/67 Pulse: 67 Resp: 18 Temp: 98.5 F (36.9 C) SpO2: 96% Physical Exam Vitals and nursing note reviewed. Constitutional: General: He is not in acute distress. Appearance: He is well-developed. He is not diaphoretic. Comments: Patient appears tired HENT: Head: Normocephalic and atraumatic. Mouth/Throat: Pharynx: No oropharyngeal exudate. Eyes: General: Right eye: No discharge. Left eye: No discharge. Conjunctiva/sclera: Conjunctivae normal. Pupils: Pupils are equal, round, and reactive to light. Cardiovascular: Rate and Rhythm: Normal rate and regular rhythm. Heart sounds: Normal heart sounds. No murmur heard. No friction rub. No gallop. Pulmonary: Effort: Pulmonary effort is normal. No respiratory distress. Breath sounds: Normal breath sounds. No wheezing or rales. Abdominal: General: Bowel sounds are normal. Palpations: Abdomen is soft. There is no mass. Tenderness: There is no abdominal tenderness. There is no guarding. Musculoskeletal: General: No deformity. Normal range of motion. Skin: General: Skin is warm and dry. Findings: No erythema or rash. Neurological: Mental Status: He is alert and oriented to person, place, and time. Sensory: No sensory deficit. Motor: No abnormal muscle tone. Coordination: Coordination normal. Psychiatric: Behavior: Behavior normal. Thought Content: Thought content normal. Judgment: Judgment normal. Hearing and vision grossly normal. For any new medications prescribed today, patient was educated about indications for the medication, how to take the medication and potential side effects of the medications. This note was written partially with [employer] dictation software. Though attempts are made to proofread, errors in grammar or spelling may be present. Depression Screening 11/25/2018 01/21/2019 02/01/2021 Little interest or pleasure in doing things 1 2 1 Feeling down, depressed, or hopeless 1 1 2 PHQ-2 Total Score 2 3 3 Trouble falling or staying asleep, or sleeping too much 1 2 2 Feeling tired or having little energy 1 3 1 Poor appetite or overeating 2 2 2 Feeling bad about yourself - or that you are a failure or have let yourself or your family down 1 2 2 Trouble concentrating on things, such as reading the newspaper or watching television 1 3 2 Moving or speaking so slowly that other people could have noticed. Or the opposite - being so fidgety or restless that you have been moving around a lot more than usual 0 0 0 Thoughts that you would be better off , or of hurting yourself in some way 0 0 0 PHQ-9 Total Score 8 15 12 If you checked off any problems, how difficult have these problems made it for you to do your work, take care of things at home, or get along with other people? Somewhat difficult Somewhat difficult Somewhat difficult documented in this encounter [facility] Evaluation note Note Date & Type Note Facility documented in this encounter [facility] Evaluation note Note Date & Type Note Facility documented in this encounter [facility] Evaluation note Note Date & Type Note Facility documented in this encounter [facility] Evaluation note Note Date & Type Note Facility documented in this encounter [facility] Evaluation note Note Date & Type Note Facility documented in this encounter [facility] Diagnosis Annual physical exam - Prima ry Routine general medical examination at a health care facility Diagnosis Annual physical exam - Prima ry Routine general medical examination at a [facility] facility Gastroesophageal reflux dise ase, esophagitis presence not specified Encounter for biometric scre ening Diagnosis Injury of right wrist, initial encounter Diagnosis Wellness examination- Primary Major depressive disorder with single episode, in partial remission (HCC) Gastroesophageal reflux disease, esophagitis presence not specified Diagnosis Major depressive disorder with single episode, in partial remission (HCC)- Primary Diagnosis Encounter for biometric screening- Primary Annual physical exam Routine general medical examination at a [facility] facility Gastroesophageal reflux disease, esophagitis presence not specified Dizziness Dizziness and giddiness Family history of atrial fibrillation Family history of other cardiovascular diseases Diagnosis Major depressive disorder with current active episode, unspecified depression episode severity, unspecified whether recurrent- Primary Diagnosis Major depressive disorder with single episode, in partial remission (HCC) Gastroesophageal reflux disease, esophagitis presence not specified Counseling for travel Other specified counseling Summary Purpose Family History No Family History Records FoundNo Family History Records FoundNo Family History Records Found Advance Directives No Advanced Directives Records FoundDocuments on File Type Date Recorded 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 Diagnoses and all orders for this visit: Wellness examination Still with fairly healthy diet and exercise Healthy exercise routine noted, encouraged continued cardiovascular exercise Patient pursuing complete alcohol cessation, reassurance provided, encouraged continued counseling and applauded success so far Patient to get flu shot through work, otherwise up-to-date on routine screenings and vaccinations Major depressive disorder with single episode, in partial remission (HCC) - sertraline (ZOLOFT) 100 MG tablet; Take 2 (two) tablets (200 mg total) by mouth daily . Currently experiencing some return of depressive symptoms Recent change in drinking habits may be contributing, though patient does report improvement in hisrelationship issues No obvious signs of bipolar disorder Interested in increasing Zoloft dose, discussed going to a maximum dose of 200 mg/day If depression worsens, would consider adding BuSpar or mood stabilizer Follow-up in about 6 weeks Gastroesophageal reflux disease, esophagitis presence not specified Currently under good control with PPI therapy Patient already has refills Can call if further refills needed Subjective: Jacob Rojas is a 29 y.o. 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[employer] Living Situation: Lives with and dog Diet: Similar to previous visit with good balance of meats, fruits, vegetables, though he has been eating larger portions lately per his report Drinks: Up to 2 cups of coffee a day, sometimes energy drinks Vitamins/Supplements: None Exercise: 1 to 2 days at the gym weekly, along with occasional walks/jogs with the dog Sleep: Occasionally disrupted due to mood issues, negative TASH screening Caffeine: As above Mood: Counselor weekly, focus issues, sleep, demotivation, impulsivity, bursts of motivation, denies new risky behaviors, excessive spedning Alcohol: Patient has decided to stop drinking entirely. He states this has an effect on his mood and sense of energy. He has enrolled on appropriate counseling and seems to be improving. Smoking: No Drug Use: Denies Immunizations: Getting flu shot through work Depression Patient states that he feels he is still having some mood issues. He stopped drinking alcohol entirely about 30 days ago, and states he has been feeling better physically but mentally is still been having some issues. He admits to primarily issues with focus, motivation, sleep, and a bit of impulsivity. He denies excessive risk-taking, increased spending, insomnia, or other risk factors related to jc. He denies any SI/HI. He denies auditory or visual hallucinations. He thinks the Zoloft has helped, but right now he is struggling with a recurrence in symptoms. He has a counselor that he is seeing once weekly, and this has helped him profoundly. He also reports his relationship has improved since our last conversation, but he feels he could always be doing better. He has been on other SSRIs in the past, and feels Zoloft has done the most, but feels it is doingless currently than it was when he initiated it last year. GERD Good control currently. Patient states he takes his PPI 2-3 times weekly, as he wants to have as low a dose as possible due to long-term side effect profile. He reports minimal heartburn, no vomiting, diarrhea, epigastric pain, constipation, blood in the stool, or other associated symptoms. The following portions of the patient's history were reviewed and updated as appropriate: allergies, current medications, past family history, past medical history, past social history, past surgicalhistory and problem list. Review of Systems Constitutional: Negative for activity change and fever. HENT: Negative for hearing loss and sore throat. Eyes: Negative for visual disturbance. Respiratory: Negative for cough, chest tightness, shortness of breath and wheezing. Cardiovascular: Negative for chest pain. Gastrointestinal: Negative for abdominal distention, abdominal pain, constipation, diarrhea, nauseaand vomiting. Genitourinary: Negative for difficulty urinating and dysuria. Musculoskeletal: Negative for joint swelling. Skin: Negative for rash. Neurological: Negative for dizziness, weakness, numbness and headaches. Psychiatric/Behavioral: Positive for decreased concentration, dysphoric mood and sleep disturbance.Negative for agitation, confusion, hallucinations and suicidal ideas. The patient is not nervous/anxious and is not hyperactive. All other systems reviewed and are negative. Objective: PACU Vitals 01/05/20 1519 BP: 115/75 Pulse: (!) 55 Temp: 98.3 F (36.8 C) SpO2: 96% Physical Exam Vitals signs and nursing note reviewed. Constitutional: General: He is not in acute distress. Appearance: He is well-developed. He is not diaphoretic. HENT: Head: Normocephalic and atraumatic. Mouth/Throat: Pharynx: No oropharyngeal exudate. Eyes: General: Right eye: No discharge. Left eye: No discharge. Conjunctiva/sclera: Conjunctivae normal. Pupils: Pupils are equal, round, and reactive to light. Cardiovascular: Rate and Rhythm: Normal rate and regular rhythm. Heart sounds: Normal heart sounds. No murmur. No friction rub. No gallop. Pulmonary: Effort: Pulmonary effort is normal. No respiratory distress. Breath sounds: Normal breath sounds. No wheezing or rales. Abdominal: General: Bowel sounds are normal. Palpations: Abdomen is soft. There is no mass. Tenderness: There is no abdominal tenderness. There is no guarding. Musculoskeletal: Normal range of motion. General: No deformity. Skin: General: Skin is warm and dry. Findings: No erythema or rash. Neurological: Mental Status: He is alert and oriented to person, place, and time. Sensory: No sensory deficit. Motor: No abnormal muscle tone. Coordination: Coordination normal. Psychiatric: Behavior: Behavior normal. Thought Content: Thought content normal. Judgment: Judgment normal. Hearing and vision grossly normal. For any new medications prescribed today, patient was educated about indications for the medication, how to take the medication and potential side effects of the medications. This note was written partially with [employer] dictation software. Though attempts are made to proofread, errors in grammar or spelling may be present. * Jazmyne Vences MA - 01/05/2020 3:30 PM EDT Patient scheduled for upcoming appointment. Prechart reviewed for Health Maintenance. Patient has the following outstanding care gap(s) that need addressed this visit: Health Maintenance Due Topic Date Due HIV Screening 12/22/2003 Order pended Hepatitis C Screening 2006 Order pended Wellness Visit 11/16/2018 Depression Remission Assessment (PHQ9) 11/22/2019 fill out at appt Sequential Influenza Vaccine (1) 12/09/2019 Order pended Some of these care gaps have an order pending for provider upon her follow up visit with provider. Patient will need instructed regarding vaccines, labs, screenings and exams upon encounter. (Note: Traditional MEDICARE does NOT cover Zoster Shingrix, Tetanus, or Tdap under medical benefit,Medicare patients can get these vaccines at their local Pharmacy. For these patients inform them toget these vaccines at their local pharmacy. Patient will need to call the office so they can updatetheir vaccine records.) Jazmyne Vences MA 12/31/19 4:12 PM documented in this encounter* Alena Hung MD - 02/23/2020 1:43 PM EST I have reviewed the history, physical, diagnosis and care plan with the resident physician, Balbina Fontenot DO. I confirm the assessment and treatment plan: Diagnoses and all orders for this visit: Major depressive disorder with single episode, in partial remission (HCC) - sertraline (ZOLOFT) 100 MG tablet; Take 1 (one) tablet (100 mg total) by mouth daily . Presents for depression follow up - doing much better. Multiple stressors in life have improved. Ptrequests decreasing medication dose back down to 100mg daily. Agree with A/P. * Balbina Fontenot DO - 02/23/2020 1:09 PM EST Assessment/Plan: This is a 29-year-old male with past medical history of depression who presents for follow-up on this issue. Diagnoses and all orders for this visit: Major depressive disorder with single episode, in partial remission (HCC) - sertraline (ZOLOFT) 100 MG tablet; Take 1 (one) tablet (100 mg total) by mouth daily . Patient requesting to return to 100 mg daily of Zoloft as depression is currently well controlled I am okay to make this change I did discuss with patient that he should not discontinue the medication suddenly as negative side effects can occur Encouraged continued positive lifestyle changes in addition to medication reduction Patient to follow-up in 6 months or sooner if issues Patient reports having flu shot for work earlier this year. Subjective: Jacob Rojas is a 29 y.o. male Chief Complaint Patient presents with Follow-up medications HPI Mood issues Patient presents for follow-up on his mood issues including depression. He states these are under good control currently as he has cut back on his drinking. He also reports that he will be starting anew job, leaving his old job which he found rather stressful. He continues to apply the techniques we have discussed at previous visits for improvement of his mood. He does report he still has some occasional sleep and focus issues, but these are improved from previous. He states that when he raised Zoloft from 100 mg to 200 mg daily, he did not notice a major difference in how he was feeling. He would like to go back to 100 mg daily as he is feeling well on the current therapy. The following portions of the patient's history were reviewed and updated as appropriate: allergies, current medications, past family history, past medical history, past social history, past surgicalhistory and problem list. Review of Systems Constitutional: Negative for activity change and fever. HENT: Negative for hearing loss and sore throat. Eyes: Negative for visual disturbance. Respiratory: Negative for cough, chest tightness, shortness of breath and wheezing. Cardiovascular: Negative for chest pain. Gastrointestinal: Negative for abdominal distention, abdominal pain, constipation, diarrhea, nauseaand vomiting. Genitourinary: Negative for difficulty urinating and dysuria. Musculoskeletal: Negative for joint swelling. Skin: Negative for rash. Neurological: Negative for dizziness, weakness, numbness and headaches. Psychiatric/Behavioral: Positive for decreased concentration. Negative for hallucinations, self-injury and suicidal ideas. The patient is not nervous/anxious. All other systems reviewed and are negative. Objective: PACU Vitals 02/23/20 1306 BP: (!) 115/55 Pulse: 60 Temp: 97.6 F (36.4 C) SpO2: 97% Physical Exam Vitals signs and nursing note reviewed. Constitutional: General: He is not in acute distress. Appearance: He is well-developed. He is not diaphoretic. HENT: Head: Normocephalic and atraumatic. Eyes: General: Right eye: No discharge. Left eye: No discharge. Pupils: Pupils are equal, round, and reactive to light. Cardiovascular: Rate and Rhythm: Normal rate and regular rhythm. Heart sounds: Normal heart sounds. No murmur. No friction rub. No gallop. Pulmonary: Effort: Pulmonary effort is normal. No respiratory distress. Breath sounds: Normal breath sounds. No wheezing or rales. Musculoskeletal: General: No deformity. Neurological: Mental Status: He is alert and oriented to person, place, and time. Motor: No abnormal muscle tone. Coordination: Coordination normal. Psychiatric: Behavior: Behavior normal. Thought Content: Thought content normal. Judgment: Judgment normal. Hearing and vision grossly normal. For any new medications prescribed today, patient was educated about indications for the medication, how to take the medication and potential side effects of the medications. This note was written partially with [employer] dictation software. Though attempts are made to proofread, errors in grammar or spelling may be present. * Queta Robert MA - 02/23/2020 1:00 PM EST Patient scheduled for upcoming appointment. Prechart reviewed for Health Maintenance. Patient has the following outstanding care gap(s) that need addressed this visit: Health Maintenance Due Topic Date Due HIV Screening 12/22/2003 Order pended Hepatitis C Screening 2006 Order pended Depression Remission Assessment (PHQ9) 11/22/2019 Complete at appt. Sequential Influenza Vaccine (1) 12/09/2019 Order pended Some of these care gaps have an order pending for provider upon her follow up visit with provider. Patient will need instructed regarding vaccines, labs, screenings and exams upon encounter. (Note: Traditional MEDICARE does NOT cover Zoster Shingrix, Tetanus, or Tdap under medical benefit,Medicare patients can get these vaccines at their local Pharmacy. For these patients inform them toget these vaccines at their local pharmacy. Patient will need to call the office so they can updatetheir vaccine records.) Queta Robert MA 02/17/20 3:27 PM documented in this encounter* Balbina Fontenot DO - 11/25/2018 1:01 PM EDT Assessment/Plan: Diagnoses and all orders for this visit: Encounter for biometric screening - Nicotine and Metabolites, Blood; Future Annual physical exam - Comprehensive Metabolic Panel; Future - CBC; Future Patient counseled over the importance of reduce alcohol intake, which he is actively working on. Discussed possibility of reducing caffeine intake as this may have some effect on his dizzy spells. Patient mood is sometimes down, but it is better than it has been in the past. Counseled patient over office resources. Patient agrees to follow-up if his mood worsens or he has questions. Gastroesophageal reflux disease, esophagitis presence not specified Patient taking Prilosec regularly, without complication. Symptoms well controlled continue current therapy. Dizziness - Comprehensive Metabolic Panel; Future - ECG 12 Lead; Future - TSH; Future - CBC; Future Etiology unclear with somewhat vague symptomology. Dizziness episodes are often associated with recent drinking. Patient does have parent and grandparent with atrial fibrillation. We will order blood work and EKG to begin work-up for dizziness. Family history of atrial fibrillation - ECG 12 Lead; Future Subjective: Jacob Rojas is a 27 y.o. male Chief Complaint Patient presents with Annual Exam HPI Dizziness First episode 6 months ago, 3 episodes since then, some nausea, one episode vomiting, sometimes mild shortness of breath, vision lags behind, feels like may pass out. These episodes usually last anywhere from 1 to 6 hours. Patient reports during a couple of these episodes his heart rate was in the 140s. These dizziness episodes are often related to a recent drinking episode within the past 2 days. Does not seem to be related to position or time of day. Not related to activity -each episode has happened when patient was sitting in car, or walking slowly. Patient states he has been eating normally when they occur, drinks lots of fluids, although this isoften coffee or energy drinks. Gym 2-3 times per week, dizziness does not happen during physical activity. Episodes pass with rest. GERD Patient diagnosed a couple years ago with GERD. Patient has been taking Prilosec since that time, prescribed by previous provider. Patient reports no complications with the medication. Patient reports no heartburn, no upset stomach, no diarrhea, no blood in his stools, or any other GI complaint. 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 Living Situation: Lives with and dog Diet: Fresh fruits and veggies, lots of meat, farmers market regular, very balanced Drinks: Coffee up to 2 cups daily, several energy drinks in a week Vitamins/Supplements: None Exercise: 2-3 days per week, weight lifting running Sleep: Getting better in the last year with reduction in drinking, getting 7 hours and feeling rested Mood: PHQ9 is 8 today, previously treated with Wellbutrin and Celexa, patient states mood is improved as his drinking has become reduced Alcohol: 3-4 beers up to twice per week, down from 3-4 per day 1 year ago Smoking: Not currently Drug Use: None Immunizations: Works in [employer] The following portions of the patient's history were reviewed and updated as appropriate: allergies, current medications, past family history, past medical history, past social history, past surgicalhistory and problem list. Review of Systems Constitutional: Negative for activity change, diaphoresis and fever. HENT: Negative for hearing loss and sore throat. Eyes: Positive for visual disturbance. Negative for photophobia. Respiratory: Negative for cough, chest tightness, shortness of breath and wheezing. Cardiovascular: Positive for palpitations. Negative for chest pain. Gastrointestinal: Negative for abdominal distention, abdominal pain, constipation, diarrhea, nauseaand vomiting. Genitourinary: Negative for difficulty urinating and dysuria. Musculoskeletal: Negative for arthralgias and joint swelling. Skin: Negative for rash. Allergic/Immunologic: Negative for environmental allergies and food allergies. Neurological: Positive for dizziness. Negative for weakness, numbness and headaches. Psychiatric/Behavioral: Negative for dysphoric mood. The patient is not nervous/anxious. All other systems reviewed and are negative. Objective: PACU Vitals 11/25/18 1301 BP: 115/74 Pulse: (!) 49 Temp: 98.2 F (36.8 C) SpO2: 98% Physical Exam Vitals signs and nursing note reviewed. Constitutional: General: He is not in acute distress. Appearance: He is well-developed. He is not diaphoretic. HENT: Head: Normocephalic and atraumatic. Eyes: General: Right eye: No discharge. Left eye: No discharge. Pupils: Pupils are equal, round, and reactive to light. Cardiovascular: Rate and Rhythm: Normal rate and regular rhythm. Heart sounds: Normal heart sounds. No murmur. No friction rub. No gallop. Pulmonary: Effort: Pulmonary effort is normal. No respiratory distress. Breath sounds: Normal breath sounds. No wheezing or rales. Abdominal: General: Bowel sounds are normal. Palpations: Abdomen is soft. There is no mass. Tenderness: There is no tenderness. There is no guarding. Musculoskeletal: General: No swelling or deformity. Right lower leg: No edema. Left lower leg: No edema. Skin: General: Skin is warm and dry. Findings: No rash. Neurological: Mental Status: He is alert and oriented to person, place, and time. Motor: No abnormal muscle tone. Coordination: Coordination normal. Psychiatric: Behavior: Behavior normal. Thought Content: Thought content normal. Judgement: Judgment normal. Comments: PHQ9 = 8 Hearing and vision grossly normal. For any new medications prescribed today, patient was educated about indications for the medication, how to take the medication and potential side effects of the medications. This note was written partially with [employer] software. Though attempts are made to proofread, errors in grammar or spelling may be present. documented in this encounter* Balbina Fontenot DO - 01/21/2019 2:54 PM EDT Assessment/Plan: Diagnoses and all orders for this visit: Major depressive disorder with current active episode, unspecified depression episode severity, unspecified whether recurrent - sertraline (ZOLOFT) 50 MG tablet; Take 1 (one) tablet (50 mg total) by mouth nightly . Patient reports several stressors in his life including relationship and work. He has been trying to manage his mood conservatively, but continues to feel anhedonia, forgetfulness, frustration, guilt. No SI/HI. He has scheduled himself with a counselor for next week, notified him that we have other resources to explore if he does not find this helpful. Counseled patient extensively over importance of coping mechanisms and social support groups. Encourage patient to seek out help if he ever feels he can no longer deal with his feelings. We will trial Zoloft 50 mg nightly, patient told to follow-up in 3 to 4 weeks to assess mood response. Subjective: Jacob Rojas is a 28 y.o. male Chief Complaint Patient presents with Depression Patient states depression is not getting better and would like to talk about medication. HPI Depression Patient states his mood has been depressed a little bit earlier this year, but has gotten worse over the last couple months. He feels he has less energy, sleep disturbance waking several times each night, feelings of guilt, forgetfulness, anhedonia, and a general sense that he should not feel the way he does. He thinks it is getting worse as the days are getting shorter. He feels it is affecting his marriage, but not necessarily his work as a nurse. He has had episodes like this in the past. Hehas never been hospitalized for psychiatric problem. He denies suicidal and homicidal ideation. He has never tried to harm himself before. He denies visual auditory hallucinations. He denies family hi story of completed suicide. He has had a counselor in the past, which helped him somewhat. He is also trialed Celexa and Wellbutrin in the past, both with minimal effect. 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 He also reports some marital issues, although specific details were not discussed. He has been trying to deal with the stress by going to yazdanism more often and exercising. He also has gained weight as he eats in response to stress. He also reports a couple episodes of binge drinking and anger as a result of his disturbed mood and stress. He has scheduled himself an independent counselor next week that takes his insurance, hoping this will help. He states he would like to try little medicine to help his mood. He reports no other somatic symptoms. He denies excessive worry about things outside of control or racing thoughts. He thinks he may be a little anxious, but he feels down much more often. The following portions of the patient's history were reviewed and updated as appropriate: allergies, current medications, past family history, past medical history, past social history, past surgicalhistory and problem list. Review of Systems Constitutional: Negative for activity change and fever. HENT: Negative for hearing loss and sore throat. Eyes: Negative for visual disturbance. Respiratory: Negative for cough, chest tightness, shortness of breath and wheezing. Cardiovascular: Negative for chest pain. Gastrointestinal: Negative for abdominal distention, abdominal pain, constipation, diarrhea, nauseaand vomiting. Genitourinary: Negative for difficulty urinating and dysuria. Musculoskeletal: Negative for joint swelling. Skin: Negative for rash. Neurological: Negative for dizziness, weakness, numbness and headaches. Psychiatric/Behavioral: Positive for agitation, decreased concentration, dysphoric mood and sleep disturbance. Negative for confusion, hallucinations and suicidal ideas. The patient is not nervous/anxious and is not hyperactive. All other systems reviewed and are negative. Objective: PACU Vitals 01/21/19 1455 BP: (!) 146/83 Pulse: 76 Temp: 98.3 F (36.8 C) SpO2: 97% PHQ 9 = 15 Physical Exam Vitals signs and nursing note reviewed. Constitutional: General: He is not in acute distress. Appearance: He is well-developed. He is not diaphoretic. HENT: Head: Normocephalic and atraumatic. Eyes: General: Right eye: No discharge. Left eye: No discharge. Pupils: Pupils are equal, round, and reactive to light. Cardiovascular: Rate and Rhythm: Normal rate and regular rhythm. Heart sounds: Normal heart sounds. No murmur. No friction rub. No gallop. Pulmonary: Effort: Pulmonary effort is normal. No respiratory distress. Breath sounds: Normal breath sounds. No wheezing or rales. Abdominal: General: Bowel sounds are normal. Palpations: Abdomen is soft. There is no mass. Tenderness: There is no tenderness. There is no guarding. Musculoskeletal: General: No deformity. Neurological: Mental Status: He is alert and oriented to person, place, and time. Motor: No abnormal muscle tone. Coordination: Coordination normal. Psychiatric: Behavior: Behavior normal. Thought Content: Thought content normal. Judgment: Judgment normal. Hearing and vision grossly normal. For any new medications prescribed today, patient was educated about indications for the medication, how to take the medication and potential side effects of the medications. This note was written partially with [employer] dictation software. Though attempts are made to proofread, errors in grammar or spelling may be present. documented in this encounter* Greg Gomez DO - 02/25/2019 10:03 AM EST I have personally seen and examined the patient independently of the resident physician. I have reviewed the history, physical, diagnosis and care plan with the resident physician, Balbina Fontenot DO. I confirm the assessment and treatment plan: 28 year old presenting for follow up on major depressive disorder - doing much better on Zoloft. Planning on taking a trip to [facility] in the spring - will follow up for travel immunizations recommendations. Diagnoses and all orders for this visit: Major depressive disorder with single episode, in partial remission (HCC) - sertraline (ZOLOFT) 100 MG tablet; Take 1 (one) tablet (100 mg total) by mouth daily . Gastroesophageal reflux disease, esophagitis presence not specified - omeprazole (PRILOSEC) 40 MG capsule; Take 1 (one) capsule (40 mg total) by mouth daily . Counseling for travel * Balbina Fontenot DO - 02/25/2019 8:03 AM EST Assessment/Plan: This is a 28 year old male with history of major depressive disorder who presents for follow up. Diagnoses and all orders for this visit: Major depressive disorder with single episode, improved - sertraline (ZOLOFT) 100 MG tablet; Take 1 (one) tablet (100 mg total) by mouth daily . Good response to initial Zoloft therapy Patient interested in increasing dose to increase effect First week he had GI side effects, which have resolved Has new counselor he enjoys seeing, will continue to visit them as they take his HSA Follow-up in 3 months, recheck PHQ9 at that time Gastroesophageal reflux disease, esophagitis presence not specified - omeprazole (PRILOSEC) 40 MG capsule; Take 1 (one) capsule (40 mg total) by mouth daily . Patient been on PPI therapy for at least a couple years Slightly worsened heartburn with Zoloft, but improved after 1 week Refilled Prilosec Counseling for travel Patient planning to take a trip in June 08 [facility] Per CDC recommendations, consider Hep A vaccine, typhoid vaccine Croat[place] Encephalitis also recommended though expensive, will discuss with patient Malaria and yellow fever very uncommon in [facility], discuss prophylaxis Subjective: Jacob Rojas is a 28 y.o. male Chief Complaint Patient presents with Follow-up follow up for medications HPI Depression On initial presentation, patient stated his mood has been depressed a little bit earlier this year,but has gotten worse over the last couple months. He felt he had less energy, sleep disturbance waking several times each night, feelings of guilt, forgetfulness, anhedonia, and a general sense that he should not feel the way he does. 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 He has had episodeslike this in the past. He has never been hospitalized for psychiatric problem. He denies suicidal and homicidal ideation. He has never tried to harm himself before. He denies visual auditory hallucinations. He denies family history of completed suicide. He has had a counselor in the past, which helped him somewhat. He is also trialed Celexa and Wellbutrin in the past, both with minimal effect. On his visit today, patient reports his symptoms are much improved. He has seen the biggest improvement in his sleep, as he is able to sleep throughout the night and feels much more rested in the morning. He says he is more ready to face the day . He also reports a reduction in his anhedonia and generalized fatigue. He feels he is getting along better in his relationships. He is curious if titrating the medicine off can continue to augment these effects. The only side effect of the Zoloft he reported was a little bit of upset stomach and increase in heartburn, which he managed by taking his Prilosec every day. He reports no other symptoms or side effects with the medicine and is happy withhis therapy. GERD Patient states this is stable with his omeprazole therapy. He did have more frequent heartburn starting the medication, but this improved after about a week. He otherwise reports no side effects frommedicine and is happy with his current therapy The following portions of the patient's history were reviewed and updated as appropriate: allergies, current medications, past family history, past medical history, past social history, past surgicalhistory and problem list. Review of Systems Constitutional: Negative for activity change and fever. HENT: Negative for hearing loss and sore throat. Eyes: Negative for visual disturbance. Respiratory: Negative for cough, chest tightness, shortness of breath and wheezing. Cardiovascular: Negative for chest pain. Gastrointestinal: Negative for abdominal distention, abdominal pain, constipation, diarrhea, nauseaand vomiting. Genitourinary: Negative for difficulty urinating and dysuria. Musculoskeletal: Negative for joint swelling. Skin: Negative for rash. Neurological: Negative for dizziness, weakness, numbness and headaches. Psychiatric/Behavioral: Negative for agitation, confusion, decreased concentration, dysphoric mood,hallucinations, sleep disturbance and suicidal ideas. The patient is not nervous/anxious and is nothyperactive. All other systems reviewed and are negative. Objective: PACU Vitals 02/25/19 0808 BP: 128/73 Pulse: (!) 52 Resp: 16 Temp: 98.2 F (36.8 C) SpO2: 94% Physical Exam Vitals signs and nursing note reviewed. Constitutional: General: He is not in acute distress. Appearance: He is well-developed. He is not diaphoretic. HENT: Head: Normocephalic and atraumatic. Eyes: General: Right eye: No discharge. Left eye: No discharge. Pupils: Pupils are equal, round, and reactive to light. Cardiovascular: Rate and Rhythm: Normal rate and regular rhythm. Heart sounds: Normal heart sounds. No murmur. No friction rub. No gallop. Pulmonary: Effort: Pulmonary effort is normal. No respiratory distress. Breath sounds: Normal breath sounds. No wheezing or rales. Abdominal: General: Bowel sounds are normal. Palpations: Abdomen is soft. There is no mass. Tenderness: There is no abdominal tenderness. There is no guarding. Musculoskeletal: General: No deformity. Neurological: Mental Status: He is alert and oriented to person, place, and time. Motor: No abnormal muscle tone. Coordination: Coordination normal. Psychiatric: Behavior: Behavior normal. Thought Content: Thought content normal. Judgment: Judgment normal. Hearing and vision grossly normal. For any new medications prescribed today, patient was educated about indications for the medication, how to take the medication and potential side effects of the medications. This note was written partially with [employer] dictation software. Though attempts are made to proofread, errors in grammar or spelling may be present. documented in this encounter Additional Source Comments (unrecognized sect ion and content) No Status Records FoundNo Status Records FoundNo Status Records Found INFORMATION SOURCE (unrecogn ized section and content) DATE CREATED AUTHOR AUTHOR'S ORGANIZ ATION 03/18/2020 [facility] DATE CREATED AUTHOR AUTHOR'S ORGANIZ ATION 04/16/2021 [facility] Reason for Visit (unrecogniz ed section and content) Reason Comments Follow-up medications Reason Comments Depression Patient states depre ssion is not getting better and would like to talk about medication. Reason Comments Follow-up follow up for medica tions Reason Onset Date Comments Medication Refill 11/30/2020 Reason Comments Annual Exam and headaches, deanna r with NSAIDS, daily for about a month, just in the mornings Immunizations Flu Reason Onset Date Comments Medication Refill 04/12/2021 Care Teams (unrecognized sec tion and content) [employer] Relationship Specialty Start Date End Date Balbina Fontenot, DO [address] [place] [address] Dr Farmer [facility] [place] [address] PCP - General Family Medicine 10/16/18 Alena Hung MD [address] [place] [address] Dr Farmer [address] [place] [id number] PCP - JUAN ANTONIO Attributed Provider - [employer] 05/10/20 04/08/50 Charis Darden MD [address] [facility] [address] [place] [address] JUAN ANTONIO Attributed Provider - Family Medicine Family Medicine 06/13/16 [employer] Relationship Specialty Start Date End Date Balbina Fontenot DO [address] [place] [address] Dr Farmer [facility] [place] [address] PCP - General Family Medicine 10/16/18 Alena Hung MD [address] [place] [address] Dr Farmer [facility] [place] [address] PCP - JUAN ANTONIO Attributed Provider - [employer] 05/10/20 04/07/21 Charis Darden MD [address] [facility] [address] [place] [address] JUAN ANTONIO Attributed Provider - Family Medicine Family Medicine 06/13/16 [employer] Relationship Specialty Start Date End Date Balbina Fontenot, [address] [place] [address] Dr Farmer [address] [place] [address] PCP - [facility] 10/16/18 Charis aDrden MD [address] [facility] [address] [place] [address] JUAN ANTONIO Attributed Provider - [facility] 06/13/16 [employer] Relationship Specialty Start Date End Date Balbina Fontenot, [address] [place] [address] Dr Farmer [address] [place] [address] PCP - [facility] 10/16/18 Charis Darden MD [address] [facility] [address] [place] [address] JUAN ANTONIO Attributed Provider - [facility] 06/13/16 FOR RECORDS PERTAINING TO PATIENTS WHO ARE OR HAVE BEEN ENROLLED IN A CHEMICAL DEPENDENCY/SUBSTANCEABUSE PROGRAM, SOME INFORMATION MAY BE OMITTED. This clinical summary was aggregated from multiple sources. Caution should be exercised in using it in the provision of clinical care. This summary normalizes information from multiple sources, and as a consequence, information in this document may materially change the coding, format and clinical context of patient data. In addition, data may be omitted in some cases. CLINICAL DECISIONS SHOULD BE BASED ON THE PRIMARY CLINICAL RECORDS. [employer] provides no warranty or guarantee of the accuracy or completeness of information in this document.
[2023-04-07 01:25] LABS: ALB/GLOB Ratio 1.1 RATIO (0.9-2.4); AST(SGOT) 14 U/L (15-37); Alanine Aminotransfer ALT/SGPT 25 U/L (16-61); Alkaline Phosphatase 90 U/L (45-117); Anion Gap 6 (5-15); BUN 20 mg/dL (7-18); BUN/Creat Ratio 18.7 RATIO (10-20); Calcium,Total 9.4 mg/dL (8.5-10.1); Chloride 104 mmol/L (98-107); Creatinine, Serum 1.07 mg/dL (0.70-1.30); EST Glomerular Filtration Rate 84 mL/min (>60); Est Glom Filt Rate - Afr Amer 102 mL/min (>60); Estimated Creatinine Clearance 94.11 ml/min; Globulin 3.6 g/dL (2.2-4.2); Glucose 112 mg/dL (74-106); Lipase 32 U/L (13-75); Potassium 3.2 mmol/L (3.5-5.1); Protein, Total 7.6 g/dL (6.4-8.2); Sodium Level 140 mmol/L (136-145)
[2023-04-07] MEDS: Ketorolac 30 MG/ML Syringe IV (01:29)
[2023-04-07] MEDS: Ondansetron 4 MG/2 ML Vial IV (01:29)
[2023-04-07 01:41] LABS: Bacteria 0 SEEN /hpf (None Seen); Mucous, Urine 0 SEEN /hpf (<or=2+); Red Blood Cells-Urine 0 SEEN /hpf (0-5); Squamous Epithelial Cells - UA 0 SEEN /hpf (0-5); White Blood Cells 0 SEEN /hpf (0-5)
[2023-04-07 01:42] LABS: Glucose, Dipstick Normal (Normal); Ketone-Dipstick Negative (Negative); Leukocyte Esterase-Dipstick Negative /ul (Negative); Nitrite-Dipstick Negative (Negative); Occult Blood-Urine Negative /ul (Negative); Protein-Dipstick Negative (Negative); Urine Bilirubin Dipstick Negative (Negative); Urine Urobilinogen Normal (Normal)
--- OUTSIDE RECORDS SUMMARY | 2023-04-07 01:48 | XMS RPT_ITS | CCD ---
Author Name Unknown Address [address] [place] [address] Organization [facility] Care Team Providers Care Fund Director Name Role Phone Charis Darden Unavailable [phone] Jacob Hernández Unavailable NIKOLAY JOYCE Attending Unavailable NIKOLAY JOYCE Referring Unavailable BALBINA FONTENOT Primary Care Unavailable Balbina Fontenot Primary Care Provider Charis Darden Unavailable BALBINA FONTENOT Primary Care Unavailable GREG GOMEZ Referring UnavailGREG Perez Admitting Unavaila NELSON Sosa Admitting Unavailable BALBINA FONTENOT Primary Care Unavailable NELSON LOO Referring Unavailable Jacob Hernández Unavailable Nikolay Joyce Unavailable Carmine Ventura Unavailable Balbina Fontenot DO Primary Care Provider [phone] Charis Darden MD Unavailable Alena Hung MD Unavailable Alena Hung MD Unavailable Alena Hung MD [...] conjunction with the immunization order to satisfy [place] Board of Pharmacy Positive ID requirements for [...] 175.3 cm Balbina Fontenot DO Work Phone: [facility] 02-01-2021 09:11-0400 Body mass index (BMI) [Ratio] 25.84 kg/m2 Balbina Fontenot DO Work Phone: [facility] 02-01-2021 09:11-0400 Body temperature 98.49 [degF] Balbina Fontenot DO Work Phone: [facility] 02-01-2021 09:11-0400 Body weight 79.38 kg Balbina Fontenot DO Work Phone: [facility] 02-01-2021 09:11-0400 Diastolic blood pressure 67 mm[Hg] Balbina Fontenot DO Work Phone: [facility] 02-01-2021 09:11-0400 Heart rate 67 /min Balbina Fontenot DO Work Phone: [facility] 02-01-2021 09:11-0400 Respiratory rate 18 /min Balbina Fontenot DO Work Phone: [facility] 02-01-2021 09:11-0400 SaO2% (BldA) [Mass fraction] 96 % Balbina Fontenot DO Work Phone: [facility] 02-01-2021 09:11-0400 Systolic blood pressure 108 mm[Hg] Balbina Fontenot DO Work Phone: [facility] 02-23-2020 13:06-0500 BMI (Body Mass Index) 25.1 kg/m2 Balbina Fontenot [facility] 02-23-2020 13:06-0500 Body Temperature 97.59 [degF] Balbina Fontenot [facility] 02-23-2020 13:06-0500 Body weight 77.11 kg Balbina Fontenot [facility] 02-23-2020 13:06-0500 BP Diastolic 55 mm[Hg] Balbina Fontenot [facility] 02-23-2020 13:06-0500 BP Systolic 115 mm[Hg] Balbina Fontenot [facility] 02-23-2020 13:06-0500 Height 175.3 cm [facility]2020 13:06-0500 Pulse (Heart Rate) 60 /[facility] 13:06-0500 Pulse Oximetry 97 % [facility] 01-05-2020 15:19-0400 BMI (Body Mass Index) 24.72 kg/m2 [facility] 01-05-2020 15:19-0400 Body Temperature 98.29 [degF] Balbina Fontenot [facility] 01-05-2020 15:19-0400 Body weight 75.93 kg [facility]-05-2020 15:19-0400 BP Diastolic 75 mm[Hg] [facility] [place]-05-2020 15:19-0400 BP Systolic 115 mm[Hg] Balbina Fontenot [facility] 01-05-2020 15:19-0400 Height 175.3 cm Balbina Fontenot [facility] 01-05-2020 15:19-0400 Pulse (Heart Rate) 55 /min Balbina Fontenot [facility] 01-05-2020 15:19-0400 Pulse Oximetry 96 % [facility] 08:08-0500 BMI (Body Mass Index) 25.77 kg/m2 [facility]-25-2019 08:08-0500 Body Temperature 98.2 [degF] [facility] 02-25-2019 08:08-0500 Body weight 78.02 kg [facility] [place] 02-25-2019 08:08-0500 BP Diastolic 73 mm[Hg] [facility] [place] 02-25-2019 08:08-0500 BP Systolic 128 mm[Hg] [facility] 02-25-2019 08:08-0500 Height 174 cm [facility] 02-25-2019 08:08-0500 Pulse (Heart Rate) 52 /min [facility] [place] 02-25-2019 08:08-0500 Pulse Oximetry 94 % [facility] 02-25-2019 08:08-0500 Respiratory Rate 16 /min [facility] 01-21-2019 14:55-0400 BMI (Body Mass Index) 25.88 kg/m2 Balbina [facility] 01-21-2019 14:55-0400 Body Temperature 98.29 [degF] [facility] 01-21-2019 14:55-0400 Body weight 78.34 kg [facility] [place] 01-21-2019 14:55-0400 BP Diastolic 83 mm[Hg] Balbina [facility] 01-21-2019 14:55-0400 BP Systolic 146 mm[Hg] [facility] 01-21-2019 14:55-0400 Height 174 cm [facility] [place] 01-21-2019 14:55-0400 Pulse (Heart Rate) 76 /min [facility] 01-21-2019 14:55-0400 Pulse Oximetry 97 % [facility] [place] 11-25-2018 13:01-0400 BMI (Body Mass Index) 24.83 kg/m2 Balbina Fontenot [facility] 11-25-2018 13:01-0400 Body Temperature 98.2 [degF] Balbina Fontenot [facility] 11-25-2018 13:01-0400 Body weight 75.16 kg Balbina Fontenot [facility] 11-25-2018 13:01-0400 BP Diastolic 74 mm[Hg] Balbina Fontenot [facility] 11-25-2018 13:01-0400 BP Systolic 115 mm[Hg] Balbina Fontenot [facility] 11-25-2018 13:01-0400 Height 174 cm Balbina Fontenot [facility] 11-25-2018 13:01-0400 Pulse (Heart Rate) 49 /min Balbina Fontenot [facility] 11-25-2018 13:01-0400 Pulse Oximetry 98 % Balbina Fontenot [facility] 11-16-2017 09:04-0400 BMI (Body Mass Index) 24.63 kg/m2 Jacob Hernández [facility] 11-16-2017 09:04-0400 Body Temperature 98.2 [degF] Jacob Hernández [facility] 11-16-2017 09:04-0400 BP Diastolic 73 mm[Hg] Jacob Hernández [facility] 11-16-2017 09:04-0400 BP Systolic 116 mm[Hg] Jacob Hernández [facility] 11-16-2017 09:04-0400 Height 172.7 cm Jacob Hernández [facility] 11-16-2017 09:04-0400 Pulse (Heart Rate) 56 /min Jacob Hernández [facility] 11-16-2017 09:04-0400 Pulse Oximetry 95 % Jacob Hernández [facility] 11-16-2017 09:04-0400 Weight 73.48 kg Jacob Hernández [facility] 05-15-2017 07:41-0500 BMI (Body Mass Index) 24.66 kg/m2 Charis Darden [facility] Work Phone: 05-15-2017 07:41-0500 Body Temperature 97.7 [degF] Charis Darden [facility] Work Phone: 05-15-2017 07:41-0500 BP Diastolic 70 mm[Hg] Charis Darden [facility] Work Phone: 05-15-2017 07:41-0500 BP Systolic 105 mm[Hg] Charis Darden [facility] Work Phone: 05-15-2017 07:41-0500 Height 175.3 cm Charis Darden [facility] Work Phone: 05-15-2017 07:41-0500 Pulse (Heart Rate) 47 /min Charisana Darden [facility] Work Phone: 05-15-2017 07:41-0500 Pulse Oximetry 94 % Charis Darden [facility] Work Phone: 05-15-2017 07:41-0500 Respiratory Rate 16 /min Charisana Darden [facility] Work Phone: 05-15-2017 07:41-0500 Weight 75.75 kg Charisana Darden [facility] Work Phone: Encounters Encounter Date Encounter Type Care Provider Facility Start: 04-12-2021 Refill Balbina young DO Work Phone: [facility] Primary Care Physicians Procedures Date Procedure Procedure Detail Performing Clinician Start: 07-21-2019 Radex wrist complete minimum 3 views Osvaldo Schwartz Work Phone: Start: 01-21-2019 Adult depression screening assessment Balbina Fontenot Start: 11-25-2018 12 lead ECG Balbina post Work Phone: Start: 11-25-2018 Adult depression screening assessment Balbina Fontenot Plan of Treatment Date Care Activity Detail Author Start: 05-15-2027 Tetanus vaccination [facility] Start: 02-01-2022 History and physical examination, annual for health maintenance Wellness Visit [facility] Start: 12-02-2021 Depression Remission Assessment (PHQ9) Depression Remission Assessment (PHQ9) [facility] Start: 01-04-2021 History and physical examination, annual for health maintenance Wellness Visit [facility] Start: 01-04-2021 End: 01-04-2021 Patient encounter procedure 01/04/2021 Office Visit Primary Care Balbina Fontenot, [address] [place] [address] Dr [address] [place] [address] [facility] Start: 12-08-2020 Influenza vaccination Sequential Influenza Vaccine (#1) [facility] Start: 01-22-2020 Depression screening using PHQ-9 (Patient Health Questionnaire 9) score DEPRESSION SCREENING (PHQ9) [facility] Start: 12-09-2019 Influenza vaccination given Sequential Influenza Vaccine (#1) [facility] Start: 11-26-2019 Depression screening using PHQ-9 (Patient Health Questionnaire 9) score DEPRESSION SCREENING (PHQ9) [facility] Start: 11-26-2019 History and physical examination, annual for health maintenance Wellness Visit [facility] Start: 11-22-2019 Depression Remission Assessment (PHQ9) Depression Remission Assessment (PHQ9) [facility] Start: 02-25-2019 End: 02-25-2019 Office Visit 02/25/2019 Office Visit Primary Care Balbina Fontenot, [address] Farmer [address] [place] [phone] [facility] Start: 12-08-2018 Influenza vaccination given Sequential Influenza Vaccine (#1) [facility] Start: 11-16-2018 History and physical examination, annual for health maintenance Wellness Visit [facility] Start: 12-08-2017 Influenza vaccination SEQUENTIAL INFLUENZA VACCINE (#1) [facility] Start: 2006 Hepatitis C antibody, confirmatory test Hepatitis C Screening [facility] Start: 2006 Hepatitis C screening Hepatitis C Screening [facility] Start: 12-22-2003 HIV screening HIV Screening [facility] Start: 2000 COVID-19 Vaccine (1) COVID-19 Vaccine (1) [facility] Start: 1988 Screening for substance abuse SUBSTANCE ABUSE SCREENING (AUDIT-C) [facility] End: 11-26-2019 Complete blood count (hemogram) panel - Blood by Automated count CBC Lab Routine Annual physical exam Dizziness 1 Occurrences starting 11/25/2018 until 11/26/2019 [facility] Immunizations Immunization Date Immunization Notes Care Provider Fa ciliata 04-11-2021 Pfizer SARS-CoV-2 Vaccination Jacinto Guadarrama MA [facility] 04-11-2021 COVID-19 vacc,mRNA,Pfizer,,PF, (PFIZER-BIONTECH COVID-19 VACCINE) injection Jacinto Guadarrama MA [facility] 02-01-2021 influenza, injectabl e, quadrivalent, preservative free Balbina Fontenot DO Work Phone: [facility] 02-01-2021 flu vacc [id number] 6 mos up,PF, (FLUZONE QUAD) injection Balbina Fontenot DO Work Phone: [facility] 05-15-2017 tetanus toxoid, redu gini diphtheria toxoid, and acellular pertussis vaccine, adsorbed; Translations: [TDAP] Charis Darden [facility] 11-17-2011 hepatitis B vaccine, adult dosage Balbina Fontenot DO Work Phone: [facility] 11-17-2011 tetanus toxoid, redu gini diphtheria toxoid, and acellular pertussis vaccine, adsorbed Balbina Fontenot DO Work Phone: [facility] Payers Date Payer Category Payer Unknown [id number] 2019 Unknown SUHA MCCARTHY/PREF/HMO/PPO xxxxxxxxxxxx 2019-Present xxxxxxxxxxxx [id number] 2019 Unknown [id number] 2019 Unknown SUHA MCCARTHY/PREF/HMO/PPO [id number] 2019-Present [phone] [address] [place] [address] [id number] 2015 Unknown xxxxxxxxx [id number] 1988 Unknown [id number] 1988 Unknown [id number] 1988 Unknown [id number] 1988 Unknown [id number] 1988 Unknown [id number] Unknown [id number] Social History Date Type Detail Facility Start: 06-13-2016 End: 05-15-2017 Tobacco smoking status NHIS Never smoker [facility] Start: 1990 Sex Assigned At Not on file O Golimi Work Phone: Start: 02-25-2019 End: 02-01-2021 Alcohol intake Current drinker of alcohol (finding) [facility] Start: 01-21-2019 End: 02-01-2021 History SDOH Social Connections Get Together 3 [facility] Start: 11-25-2018 End: 02-01-2021 History SDOH Food Worry 1 [facility] Start: 06-13-2016 Alcohol Comment 2-3 drinks 2-3 times a week [facility] Start: 06-13-2016 End: 01-05-2020 Tobacco use and exposure Never used [facility] Start: 01-05-2020 End: 02-01-2021 History SDOH Financial 5 [facility] Start: 01-05-2020 End: 02-01-2021 History SDOH Transport Med 2 [facility] Exposure to SARS-CoV -2 (event) Not sure [facility] Start: 11-25-2018 History SDOH Social Connections Get Together 4 [facility] History of Present illness Narrative 02-03-2021 [...] Flu HPI 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 This note was written partially with I-Pulse dictation software. Though attempts are made to [...] difficult Somewhat difficult documented in this encounter [facility] Instructions 02-01-2021 Patient Instructions Note Date [...] Log into your personal health record on [email or web address] [place] and enter P975 in the Education box to learn more about Neck: Exercises. Current as of: October 07, 2020 Content Version: 13.0 [employer]. Care instructions adapted under license by your healthcare professional. If you have questions about a medical condition or this instruction, always ask your healthcare professional. [employer] disclaims any warranty or liability for your [...] Log into your personal health record on [email or web address] [place] and enter J942 in the Education box to learn more about Learning About Sleeping Well. Current as of: September 22, 2020 Content Version: 13.0 [employer]. Care instructions adapted under license by your healthcare professional. If you have questions about a medical condition or this instruction, always ask your healthcare professional. [employer] disclaims any warranty or liability for your use of this information. documented in this encounter [facility] Instructions 02-01-2021 Patient Instructions Note Date [...] Log into your personal health record on [email or web address] [place] and enter P975 in the Education box to learn more about Neck: Exercises. Current as of: October 07, 2020 Content Version: 13.0 [employer]. Care instructions adapted under license by your healthcare professional. If you have questions about a medical condition or this instruction, always ask your healthcare professional. [employer] disclaims any warranty or liability for your [...] Log into your personal health record on [email or web address] [place] and enter J942 in the Education box to learn more about Learning About Sleeping Well. Current as of: September 22, 2020 Content Version: 13.0 [employer]. Care instructions adapted under license by your healthcare professional. If you have questions about a medical condition or this instruction, always ask your healthcare professional. [employer] disclaims any warranty or liability for your use of this information. 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 This note was written partially with I-Pulse dictation software. Though attempts are made to [...] difficult Somewhat difficult documented in this encounter [facility] Evaluation note Note Date & Type Note Facility documented in this encounter [facility] Evaluation note Note Date & Type Note Facility documented in this encounter [facility] Evaluation note Note Date & Type Note Facility documented in this encounter [facility] Evaluation note Note Date & Type Note Facility documented in this encounter [facility] Evaluation note Note Date & Type Note Facility documented in this encounter [facility] Diagnosis Annual physical exam - Prima ry Routine general medical examination at a health care facility Diagnosis Annual physical exam - Prima ry Routine general medical examination at a [facility] facility Gastroesophageal reflux dise ase, esophagitis presence [...] exam Routine general medical examination at a [facility] facility Gastroesophageal reflux disease, esophagitis presence not [...] FoundDocuments on File Type Date Recorded 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 This note was written partially with I-Pulse dictation software. Though attempts are made to [...] 12/31/19 4:12 PM documented in this encounter* lAena Hung MD - 02/23/2020 1:43 PM EST [...] medications. This note was written partially with I-Pulse dictation software. Though attempts are made to [...] currently Drug Use: None Immunizations: Works in [employer] The following portions of the patient's history [...] medications. This note was written partially with Citizens Rxation software. 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 He also reports some marital issues, although specific details were not discussed. He has been trying to deal with the stress by going to shinto more often and exercising. He also has [...] medications. This note was written partially with I-Pulse dictation software. Though attempts are made to [...] Zoloft. Planning on taking a trip to [facility] in the spring - will follow up [...] to take a trip in June 08 [facility] Per CDC recommendations, consider Hep A vaccine, typhoid vaccine Lithuanian Encephalitis also recommended though expensive, will discuss with patient Malaria and yellow fever very uncommon in [facility] and [facility], discuss prophylaxis Subjective: Jacob Rojas is a [...] medications. This note was written partially with I-Pulse dictation software. Though attempts are made to proofread, errors in grammar or spelling may be present. documented in this encounter Additional Source Comments (unrecognized sect ion and content) No Status Records FoundNo Status Records FoundNo Status Records Found INFORMATION SOURCE (unrecogn ized section and content) DATE CREATED AUTHOR AUTHOR'S ORGANIZ ATION 03/18/[address] [facility] DATE CREATED AUTHOR AUTHOR'S ORGANIZ ATION 04/16/2021 [facility] Reason for Visit (unrecogniz ed section and [...] Care Teams (unrecognized sec tion and content) Fund Director Relationship Specialty Start Date End Date Balbina Fontenot, DO [address] [place] [address] Dr Farmer [facility] [place] [address] PCP - General Family Medicine 10/16/18 Alena Hung MD [address] [place] [address] Dr [address] [place] [id number] PCP - JUAN ANTONIO Attributed Provider - [employer] 05/10/20 04/08/50 Charis Darden MD [address] [facility] [address] [place] [address] JUAN ANTONIO Attributed Provider - Family Medicine Family Medicine 06/13/16 Fund Director Relationship Specialty Start Date End Date Balbina Fontenot DO [address] [place] [address] Dr Farmer [facility] [place] [address] PCP - General Family Medicine 10/16/18 Alena Hung MD [address] [place] [address] Dr Farmer [facility] [place] [address] PCP - JUAN ANTONIO Attributed Provider - [employer] 05/10/20 04/07/21 Charis Darden MD [address] [facility] [address] [place] [address] JUAN ANTONIO Attributed Provider - Family Medicine Family Medicine 06/13/16 Fund Director Relationship Specialty Start Date End Date Balbina Fontenot, [address] [place] [address] Dr [address] [place] [address] PCP - [facility] 10/16/18 Charis Darden MD [address] [facility] [address] [place] [address] JUAN ANTONIO Attributed Provider - [facility] 06/13/16 Fund Director Relationship Specialty Start Date End Date Balbina Fontenot, [address] [place] [address] [address] [place] [address] PCP - [facility] 10/16/18 Charis Darden MD [address] [facility] [address] [place] [address] JUAN ANTONIO Attributed Provider - [facility] 06/13/16 FOR RECORDS PERTAINING TO PATIENTS WHO [...] BE BASED ON THE PRIMARY CLINICAL RECORDS. [employer] provides no warranty or guarantee of the accuracy or completeness of information in this document.
[2023-04-07 01:53] LABS: Color, Urine Yellow (Yellow); Urine Clarity Clear (Clear)
[2023-04-07] MEDS: Piperacil/Tazobactam 4.5 GM in 0.9% Normal Saline (100mL MB+) 100 ML IV (02:07)
--- OUTSIDE RECORDS SUMMARY | 2023-04-07 03:19 | XMS RPT_ITS | CCD ---
Author Name Unknown Address [address] [place] [address] Organization [facility] Care Team Providers Care Prep Manager Name Role Phone Charis Darden Unavailable Jacob Hernández Unavailable [phone] NIKOLAY JOYCE Attending Unavailable NIKOLAY JOYCE Referring Unavailable BALBINA FONTENOT Primary Care Unavailable Balbina Fontenot Primary Care Provider Charis Darden Unavailable BALBINA FONTENOT Primary Care Unavailable GREG GOMEZ Referring UnavailGREG Perez Admitting Unavaila NELSON Sosa Admitting Unavailable BALBINA FONTENOT Primary Care Unavailable NELSON LOO Referring Unavailable Jacob Hernández Unavailable [phone] Nikolay Joyce Unavailable Carmine Ventura Unavailable Balbina Fontenot DO Primary Care Provider Charis Darden MD Unavailable [phone] Alena Hung MD Unavailable [phone] Alena Hung MD Unavailable Alena Hung MD Unavailable [phone] Charis Darden MD Unavailable [phone] BALBINA FONTENOT Primary Care Unavailable JACINTO GUADARRAMA [...] conjunction with the immunization order to satisfy [place] Board of Pharm[place] Positive ID requirements for [...] 175.3 cm Balbina Fontenot DO Work Phone: [facility] 02-01-2021 09:11-0400 Body mass index (BMI) [Ratio] 25.84 kg/m2 Balbina Fontenot DO Work Phone: [facility] 02-01-2021 09:11-0400 Body temperature 98.49 [degF] Balbina Fontenot DO Work Phone: [facility] 02-01-2021 09:11-0400 Body weight 79.38 kg Balbina Fontenot DO Work Phone: [facility] 02-01-2021 09:11-0400 Diastolic blood pressure 67 mm[Hg] Balbina Fontenot DO Work Phone: [facility] 02-01-2021 09:11-0400 Heart rate 67 /min Balbina Fontenot DO Work Phone: [facility] 02-01-2021 09:11-0400 Respiratory rate 18 /min Balbina Fontenot DO Work Phone: [facility] 02-01-2021 09:11-0400 SaO2% (BldA) [Mass fraction] 96 % Balbina Fontenot DO Work Phone: [facility] 02-01-2021 09:11-0400 Systolic blood pressure 108 mm[Hg] Balbina Fontenot DO Work Phone: [facility] 02-23-2020 13:06-0500 BMI (Body Mass Index) 25.1 kg/m2 Balbina Fontenot [facility] 02-23-2020 13:06-0500 Body Temperature 97.59 [degF] Balbina Fontenot [facility] 02-23-2020 13:06-0500 Body weight 77.11 kg Balbina Fontenot [facility] 02-23-2020 13:06-0500 BP Diastolic 55 mm[Hg] Balbina Fontenot [facility] 02-23-2020 13:06-0500 BP Systolic 115 mm[Hg] Balbina Fontenot [facility] 02-23-2020 13:06-0500 Height 175.3 cm [facility] 13:06-0500 Pulse (Heart Rate) 60 /min [facility] 13:06-0500 Pulse Oximetry 97 % [facility] 01-05-2020 15:19-0400 BMI (Body Mass Index) 24.72 kg/m2 [facility] 01-05-2020 15:19-0400 Body Temperature 98.29 [degF] Balbina Fontenot [facility] 01-05-2020 15:19-0400 Body weight 75.93 kg [facility] 01-05-2020 15:19-0400 BP Diastolic 75 mm[Hg] [facility] 01-05-2020 15:19-0400 BP Systolic 115 mm[Hg] Balbina Fontenot [facility] 01-05-2020 15:19-0400 Height 175.3 cm Balbina Fontenot [facility] 01-05-2020 15:19-0400 Pulse (Heart Rate) 55 /min Balbina Fontenot [facility] 01-05-2020 15:19-0400 Pulse Oximetry 96 % [facility] 02-25-2019 08:08-0500 BMI (Body Mass Index) 25.77 kg/m2 [facility] 02-25-2019 08:08-0500 Body Temperature 98.2 [degF] [facility] 02-25-2019 08:08-0500 Body weight 78.02 kg [facility] 02-25-2019 08:08-0500 BP Diastolic 73 mm[Hg] [facility] 02-25-2019 08:08-0500 BP Systolic 128 mm[Hg] [facility] 02-25-2019 08:08-0500 Height 174 cm [facility] 02-25-2019 08:08-0500 Pulse (Heart Rate) 52 /min [facility] 02-25-2019 08:08-0500 Pulse Oximetry 94 % [facility] 02-25-2019 08:08-0500 Respiratory Rate 16 /min [facility] 01-21-2019 14:55-0400 BMI (Body Mass Index) 25.88 kg/m2 Balbina [facility] 01-21-2019 14:55-0400 Body Temperature 98.29 [degF] [facility] 01-21-2019 14:55-0400 Body weight 78.34 kg [facility] 01-21-2019 14:55-0400 BP Diastolic 83 mm[Hg] Balbina [facility] 01-21-2019 14:55-0400 BP Systolic 146 mm[Hg] [facility] 01-21-2019 14:55-0400 Height 174 cm [facility] 01-21-2019 14:55-0400 Pulse (Heart Rate) 76 /min [facility] 01-21-2019 14:55-0400 Pulse Oximetry 97 % [facility] 11-25-2018 13:01-0400 BMI (Body Mass Index) 24.83 kg/m2 Balbina Fontenot [facility] 11-25-2018 13:01-0400 Body Temperature 98.2 [degF] Balbina Fontenot [facility] 11-25-2018 13:01-0400 Body weight 75.16 kg Balbina Fontenot [facility] 11-25-2018 13:01-0400 BP Diastolic 74 mm[Hg] Balbina Fontenot [facility] 11-25-2018 13:01-0400 BP Systolic 115 mm[Hg] Balbina Fontenot [facility] 11-25-2018 13:01-0400 Height 174 cm Balbina Fontenot [facility] 11-25-2018 13:01-0400 Pulse (Heart Rate) 49 /min Balbina Fontenot [facility] 11-25-2018 13:01-0400 Pulse Oximetry 98 % Balbina Fnotenot [facility] 11-16-2017 09:04-0400 BMI (Body Mass Index) 24.63 kg/m2 Jacob Hernández [facility] 11-16-2017 09:04-0400 Body Temperature 98.2 [degF] Jacob Hernández [facility] 11-16-2017 09:04-0400 BP Diastolic 73 mm[Hg] Jacob Hernández [facility] 11-16-2017 09:04-0400 BP Systolic 116 mm[Hg] Jacob Hernández [facility] 11-16-2017 09:04-0400 Height 172.7 cm Jacob Hernández [facility] 11-16-2017 09:04-0400 Pulse (Heart Rate) 56 /min Jacob Hernández [facility] 11-16-2017 09:04-0400 Pulse Oximetry 95 % Jacob Hernández [facility] 11-16-2017 09:04-0400 Weight 73.48 kg Jacob Hernández [facility] 05-15-2017 07:41-0500 BMI (Body Mass Index) 24.66 kg/m2 Charis Darden [facility] Work Phone: 05-15-2017 07:41-0500 Body Temperature 97.7 [degF] Charis Darden [facility] Work Phone: 05-15-2017 07:41-0500 BP Diastolic 70 mm[Hg] Charis Darden [facility] Work Phone: 05-15-2017 07:41-0500 BP Systolic 105 mm[Hg] Charis Darden [facility] Work Phone: 05-15-2017 07:41-0500 Height 175.3 cm Charis Darden [facility] Work Phone: 05-15-2017 07:41-0500 Pulse (Heart Rate) 47 /min Charisana Darden [facility] Work Phone: 05-15-2017 07:41-0500 Pulse Oximetry 94 % Charis Darden [facility] Work Phone: 05-15-2017 07:41-0500 Respiratory Rate 16 /min Charisana Darden [facility] Work Phone: 05-15-2017 07:41-0500 Weight 75.75 kg Charisana Darden [facility] Work Phone: Encounters Encounter Date Encounter Type Care Provider Facility Start: 04-12-2021 Refill Balbina young DO Work Phone: [facility] Primary Care Physicians Procedures Date Procedure Procedure Detail Performing Clinician Start: 07-21-2019 Radex wrist complete minimum 3 views Osvaldo Schwartz Work Phone: Start: 01-21-2019 Adult depression screening assessment Balbina Fontenot Start: 11-25-2018 12 lead ECG Balbina post Work Phone: Start: 11-25-2018 Adult depression screening assessment Balbina Fontenot Plan of Treatment Date Care Activity Detail Author Start: 05-15-2027 Tetanus vaccination [facility] Start: 02-01-2022 History and physical examination, annual for health maintenance Wellness Visit [facility] Start: 12-02-2021 Depression Remission Assessment (PHQ9) Depression Remission Assessment (PHQ9) [facility] Start: 01-04-2021 History and physical examination, annual for health maintenance Wellness Visit [facility] Start: 01-04-2021 End: 01-04-2021 Patient encounter procedure 01/04/2021 Office Visit Primary Care Balbina Fontenot, [address] [place] [address] Dr Farmer [address] [place] [address] [facility] Start: 12-08-2020 Influenza vaccination Sequential Influenza Vaccine (#1) [facility] Start: 01-22-2020 Depression screening using PHQ-9 (Patient Health Questionnaire 9) score DEPRESSION SCREENING (PHQ9) [facility] Start: 12-09-2019 Influenza vaccination given Sequential Influenza Vaccine (#1) [facility] Start: 11-26-2019 Depression screening using PHQ-9 (Patient Health Questionnaire 9) score DEPRESSION SCREENING (PHQ9) [facility] Start: 11-26-2019 History and physical examination, annual for health maintenance Wellness Visit [facility] Start: 11-22-2019 Depression Remission Assessment (PHQ9) Depression Remission Assessment (PHQ9) [facility] Start: 02-25-2019 End: 02-25-2019 Office Visit 02/25/2019 Office Visit Primary Care Balbina Fontenot, [address] Farmer [address] [place] [address] [phone] [facility] Start: 12-08-2018 Influenza vaccination given Sequential Influenza Vaccine (#1) [facility] Start: 11-16-2018 History and physical examination, annual for health maintenance Wellness Visit [facility] Start: 12-08-2017 Influenza vaccination SEQUENTIAL INFLUENZA VACCINE (#1) [facility] Start: 2006 Hepatitis C antibody, confirmatory test Hepatitis C Screening [facility] Start: 2006 Hepatitis C screening Hepatitis C Screening [facility] Start: 12-22-2003 HIV screening HIV Screening [facility] Start: 2000 COVID-19 Vaccine (1) COVID-19 Vaccine (1) [facility] Start: 1988 Screening for substance abuse SUBSTANCE ABUSE SCREENING (AUDIT-C) [facility] End: 11-26-2019 Complete blood count (hemogram) panel - Blood by Automated count CBC Lab Routine Annual physical exam Dizziness 1 Occurrences starting 11/25/2018 until 11/26/2019 [facility] Immunizations Immunization Date Immunization Notes Care Provider Fa ciliata 04-11-2021 Pfizer SARS-CoV-2 Vaccination Jacinto Guadarrama MA [facility] 04-11-2021 COVID-19 vacc,mRNA,Pfizer,,PF, (PFIZER-BIONTECH COVID-19 VACCINE) injection Jacinto Guadarrama MA [facility] 02-01-2021 influenza, injectabl e, quadrivalent, preservative free Balbina Fontenot DO Work Phone: [facility] 02-01-2021 flu vacc [id number] 6 mos up,PF, (FLUZONE QUAD) injection Balbina Fontenot DO Work Phone: [facility] 05-15-2017 tetanus toxoid, redu gini diphtheria toxoid, and acellular pertussis vaccine, adsorbed; Translations: [TDAP] Charis Darden [facility] 11-17-2011 hepatitis B vaccine, adult dosage Balbina Fontenot DO Work Phone: [facility] 11-17-2011 tetanus toxoid, redu gini diphtheria toxoid, and acellular pertussis vaccine, adsorbed Balbina Fontenot DO Work Phone: [facility] Payers Date Payer Category Payer Unknown [id number] 2019 Unknown SUHA MCCARTHY/PREF/HMO/PPO xxxxxxxxxxxx 2019-Present [id number] 2019 Unknown [id number] 2019 Unknown SUHA MCCARTHY/PREF/HMO/PPO [id number] 2019-Present [phone] [address] [place] [address] [id number] 2015 Unknown xxxxxxxxx [id number] 1988 Unknown [id number] 1988 Unknown [id number] 1988 Unknown [id number] 1988 Unknown [id number] 1988 Unknown [id number] Unknown [id number] Social History Date Type Detail Facility Start: 06-13-2016 End: 05-15-2017 Tobacco smoking status NHIS Never smoker [facility] Start: 1990 Sex Assigned At Not on file [employer] Work Phone: Start: 02-25-2019 End: 02-01-2021 Alcohol intake Current drinker of alcohol (finding) [facility] Start: 01-21-2019 End: 02-01-2021 History SDOH Social Connections Get Together 3 [facility] Start: 11-25-2018 End: 02-01-2021 History SDOH Food Worry 1 [facility] Start: 06-13-2016 Alcohol Comment 2-3 drinks 2-3 times a week [facility] Start: 06-13-2016 End: 01-05-2020 Tobacco use and exposure Never used [facility] Start: 01-05-2020 End: 02-01-2021 History SDOH Financial 5 [facility] Start: 01-05-2020 End: 02-01-2021 History SDOH Transport Med 2 [facility] Exposure to SARS-CoV -2 (event) Not sure [facility] Start: 11-25-2018 History SDOH Social Connections Get Together 4 [facility] History of Present illness Narrative 02-03-2021 [...] Flu HPI 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 This note was written partially with Spiration dictation software. Though attempts are made to [...] difficult Somewhat difficult documented in this encounter [facility] Instructions 02-01-2021 Patient Instructions Note Date [...] Log into your personal health record on [email or web address] and enter P975 in the Education box to learn more about Neck: Exercises. Current as of: October 07, 2020 Content Version: 13.0 [employer]. Care instructions adapted under license by your healthcare professional. If you have questions about a medical condition or this instruction, always ask your healthcare professional. [employer] disclaims any warranty or liability for your [...] Log into your personal health record on [email or web address] and enter J942 in the Education box to learn more about Learning About Sleeping Well. Current as of: September 22, 2020 Content Version: 13.0 [employer]. Care instructions adapted under license by your healthcare professional. If you have questions about a medical condition or this instruction, always ask your healthcare professional. [employer] disclaims any warranty or liability for your use of this information. documented in this encounter [facility] Instructions 02-01-2021 Patient Instructions Note Date [...] Log into your personal health record on [email or web address] and enter P975 in the Education box to learn more about Neck: Exercises. Current as of: October 07, 2020 Content Version: 13.0 [employer]. Care instructions adapted under license by your healthcare professional. If you have questions about a medical condition or this instruction, always ask your healthcare professional. [employer] disclaims any warranty or liability for your [...] Log into your personal health record on [email or web address] and enter J942 in the Education box to learn more about Learning About Sleeping Well. Current as of: September 22, 2020 Content Version: 13.0 [employer]. Care instructions adapted under license by your healthcare professional. If you have questions about a medical condition or this instruction, always ask your healthcare professional. [employer] disclaims any warranty or liability for your use of this information. 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 This note was written partially with Spiration dictation software. Though attempts are made to [...] difficult Somewhat difficult documented in this encounter [facility] Evaluation note Note Date & Type Note Facility documented in this encounter [facility] Evaluation note Note Date & Type Note Facility documented in this encounter [facility] Evaluation note Note Date & Type Note Facility documented in this encounter [facility] Evaluation note Note Date & Type Note Facility documented in this encounter [facility] Evaluation note Note Date & Type Note Facility documented in this encounter [facility] Diagnosis Annual physical exam - Prima ry Routine general medical examination at a health care facility Diagnosis Annual physical exam - Prima ry Routine general medical examination at a [facility] facility Gastroesophageal reflux dise ase, esophagitis presence [...] exam Routine general medical examination at a [facility] facility Gastroesophageal reflux disease, esophagitis presence not [...] FoundDocuments on File Type Date Recorded 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 This note was written partially with Spiration dictation software. Though attempts are made to [...] medications. This note was written partially with Spiration dictation software. Though attempts are made to [...] currently Drug Use: None Immunizations: Works in [employer] The following portions of the patient's history [...] medications. This note was written partially with MobilePeakation software. 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 He also reports some marital issues, although specific details were not discussed. He has been trying to deal with the stress by going to [employer] more often and exercising. He also has [...] medications. This note was written partially with Spiration dictation software. Though attempts are made to [...] Zoloft. Planning on taking a trip to [facility] in the spring - will follow up [...] to take a trip in June 08 [facility] Per CDC recommendations, consider Hep A vaccine, typhoid vaccine Hebrew Encephalitis also recommended though expensive, will discuss with patient Malaria and yellow fever very uncommon in [facility], discuss prophylaxis Subjective: Jacob Rojas is [...] medications. This note was written partially with Spiration dictation software. Though attempts are made to proofread, errors in grammar or spelling may be present. documented in this encounter Additional Source Comments (unrecognized sect ion and content) No Status Records FoundNo Status Records FoundNo Status Records Found INFORMATION SOURCE (unrecogn ized section and content) DATE CREATED AUTHOR AUTHOR'S ORGANIZ ATION 03/18/2020 [facility] DATE CREATED AUTHOR AUTHOR'S ORGANIZ ATION 04/16/2021 [facility] Reason for Visit (unrecogniz ed section and [...] Care Teams (unrecognized sec tion and content) Prep Manager Relationship Specialty Start Date End Date Balbina Fontenot, DO [address] [place] [address] Dr Farmer [facility] [place] [address] PCP - General Family Medicine 10/16/18 Alena Hung MD [address] [place] [address] Dr Farmer [address] [place] [address] PCP - JUAN ANTONIO Attributed Provider - [employer] 05/10/20 04/08/50 Charis Darden MD [address] [facility] [address] [place] [address] JUAN ANTONIO Attributed Provider - Family Medicine Family Medicine 06/13/16 Prep Manager Relationship Specialty Start Date End Date Balbina Fontenot DO [address] [place] [address] Dr Farmer [facility] [place] [address] PCP - General Family Medicine 10/16/18 Alena Hung MD [address] [place] [address] Dr Farmer [facility] [place] [address] PCP - JUAN ANTONIO Attributed Provider - [employer] 05/10/20 04/07/21 Charis Darden MD [address] [facility] [address] [place] [address] JUAN ANTONIO Attributed Provider - Family Medicine Family Medicine 06/13/16 Prep Manager Relationship Specialty Start Date End Date Balbina Fontenot, [address] [place] [address] Dr Farmer [address] [place] [address] PCP - [facility] 10/16/18 Charis Darden MD [address] [facility] [address] [place] [address] JUAN ANTONIO Attributed Provider - [facility] 06/13/16 Prep Manager Relationship Specialty Start Date End Date Balbina Fontenot, [address] [place] [address] [address] Farmer [address] [place] [address] PCP - [facility] 10/16/18 Charis Darden MD [address] [facility] [address] [place] [address] JUAN ANTONIO Attributed Provider - [facility] 06/13/16 FOR RECORDS PERTAINING TO [...] BE BASED ON THE PRIMARY CLINICAL RECORDS. [employer] provides no warranty or guarantee of the accuracy or completeness of information in this document.
--- OUTSIDE RECORDS SUMMARY | 2023-04-07 03:20 | XMS RPT_ITS | CCD ---
Author Name Unknown Address [address] [place] [address] Organization [facility] Care Team Providers Care Double Reamer Operator Name Role Phone Charis Darden Unavailable Jacob Hernández Unavailable [phone] NIKOLAY JOYCE Attending Unavailable NIKOLAY JOYCE Referring Unavailable BALBINA FONTENOT Primary Care Unavailable Balbina Fontenot Primary Care Provider [phone] Charis Daredn Unavailable BALBINA FONTENOT Primary Care Unavailable GREG GOMEZ Referring UnavailGREG Perez Admitting Unavaila NELSON Sosa Admitting Unavailable BALBINA FONTENOT Primary Care Unavailable NELSON LOO Referring Unavailable Jacob Hernández Unavailable [phone] Nikolay Joyce Unavailable Carmine Ventura Unavailable Balbina Fontenot DO Primary Care Provider [phone] Charis Darden MD Unavailable [phone] Alena Hung MD Unavailable [phone] Alena Hung MD Unavailable [phone] Alena Hung MD Unavailable [phone] Charis Darden MD Unavailable BALBINA FONTENOT Primary [...] conjunction with the immunization order to satisfy [place] Board of Pharmacy Positive ID requirements for [...] 175.3 cm Balbina Fontenot DO Work Phone: [facility] 02-01-2021 09:11-0400 Body mass index (BMI) [Ratio] 25.84 kg/m2 Balbina Fontenot DO Work Phone: [facility] 02-01-2021 09:11-0400 Body temperature 98.49 [degF] Balbina Fontenot DO Work Phone: [facility] 02-01-2021 09:11-0400 Body weight 79.38 kg Balbina Fontenot DO Work Phone: [facility] 02-01-2021 09:11-0400 Diastolic blood pressure 67 mm[Hg] Balbina Fontenot DO Work Phone: [facility] 02-01-2021 09:11-0400 Heart rate 67 /min Balbina Fontenot DO Work Phone: [facility] 02-01-2021 09:11-0400 Respiratory rate 18 /min Balbina Fontenot DO Work Phone: [facility] 02-01-2021 09:11-0400 SaO2% (BldA) [Mass fraction] 96 % Balbina Fontenot DO Work Phone: [facility] 02-01-2021 09:11-0400 Systolic blood pressure 108 mm[Hg] Balbina Fontenot DO Work Phone: [facility] 02-23-2020 13:06-0500 BMI (Body Mass Index) 25.1 kg/m2 Balbina Fontenot [facility] 02-23-2020 13:06-0500 Body Temperature 97.59 [degF] Balbina Fontenot [facility] 02-23-2020 13:06-0500 Body weight 77.11 kg Balbina Fontenot [facility] 02-23-2020 13:06-0500 BP Diastolic 55 mm[Hg] Balbina Fontenot [facility] 02-23-2020 13:06-0500 BP Systolic 115 mm[Hg] Balbina Fontenot [facility] 02-23-2020 13:06-0500 Height 175.3 cm [facility]2020 13:06-0500 Pulse (Heart Rate) 60 /[facility] 13:06-0500 Pulse Oximetry 97 % [facility] 01-05-2020 15:19-0400 BMI (Body Mass Index) 24.72 kg/m2 [facility] 01-05-2020 15:19-0400 Body Temperature 98.29 [degF] Balbina Fontenot [facility] 01-05-2020 15:19-0400 Body weight 75.93 kg [facility]-05-2020 15:19-0400 BP Diastolic 75 mm[Hg] [facility] 01-05-2020 15:19-0400 BP Systolic 115 mm[Hg] Balbina Fontenot [facility] 01-05-2020 15:19-0400 Height 175.3 cm Balbina Fontenot [facility] 01-05-2020 15:19-0400 Pulse (Heart Rate) 55 /min Balbina Fontenot [facility] 01-05-2020 15:19-0400 Pulse Oximetry 96 % [facility] 02-25-2019 08:08-0500 BMI (Body Mass Index) 25.77 kg/m2 [facility] 02-25-2019 08:08-0500 Body Temperature 98.2 [degF] [facility] 02-25-2019 08:08-0500 Body weight 78.02 kg [facility] 02-25-2019 08:08-0500 BP Diastolic 73 mm[Hg] [facility] 02-25-2019 08:08-0500 BP Systolic 128 mm[Hg] [facility] 02-25-2019 08:08-0500 Height 174 cm [facility] 02-25-2019 08:08-0500 Pulse (Heart Rate) 52 /min [facility] 02-25-2019 08:08-0500 Pulse Oximetry 94 % [facility] 02-25-2019 08:08-0500 Respiratory Rate 16 /min [facility] 01-21-2019 14:55-0400 BMI (Body Mass Index) 25.88 kg/m2 Balbina [facility] 01-21-2019 14:55-0400 Body Temperature 98.29 [degF] [facility] 01-21-2019 14:55-0400 Body weight 78.34 kg [facility] 01-21-2019 14:55-0400 BP Diastolic 83 mm[Hg] Balbina [facility] 01-21-2019 14:55-0400 BP Systolic 146 mm[Hg] [facility] 01-21-2019 14:55-0400 Height 174 cm [facility] 01-21-2019 14:55-0400 Pulse (Heart Rate) 76 /min [facility] 01-21-2019 14:55-0400 Pulse Oximetry 97 % [facility] 11-25-2018 13:01-0400 BMI (Body Mass Index) 24.83 kg/m2 Balbina Fontenot [facility] 11-25-2018 13:01-0400 Body Temperature 98.2 [degF] Balbina Fontenot [facility] 11-25-2018 13:01-0400 Body weight 75.16 kg Balbina Fontenot [facility] 11-25-2018 13:01-0400 BP Diastolic 74 mm[Hg] Balbina Fontenot [facility] 11-25-2018 13:01-0400 BP Systolic 115 mm[Hg] Balbina Fontenot [facility] 11-25-2018 13:01-0400 Height 174 cm Balbina Fontenot [facility] 11-25-2018 13:01-0400 Pulse (Heart Rate) 49 /min Balbina Fontenot [facility] 11-25-2018 13:01-0400 Pulse Oximetry 98 % Balbina Fontenot [facility] 11-16-2017 09:04-0400 BMI (Body Mass Index) 24.63 kg/m2 Jacob Hernández [facility] 11-16-2017 09:04-0400 Body Temperature 98.2 [degF] Jacob Hernández [facility] 11-16-2017 09:04-0400 BP Diastolic 73 mm[Hg] Jacob Hernández [facility] 11-16-2017 09:04-0400 BP Systolic 116 mm[Hg] Jacob Hernández [facility] 11-16-2017 09:04-0400 Height 172.7 cm Jacob Hernández [facility] 11-16-2017 09:04-0400 Pulse (Heart Rate) 56 /min Jacob Hernández [facility] 11-16-2017 09:04-0400 Pulse Oximetry 95 % Jacob Hernández [facility] 11-16-2017 09:04-0400 Weight 73.48 kg Jacob Hernández [facility] 05-15-2017 07:41-0500 BMI (Body Mass Index) 24.66 kg/m2 Charis Darden [facility] Work Phone: 05-15-2017 07:41-0500 Body Temperature 97.7 [degF] Charis Darden [facility] Work Phone: 05-15-2017 07:41-0500 BP Diastolic 70 mm[Hg] Charis Darden [facility] Work Phone: 05-15-2017 07:41-0500 BP Systolic 105 mm[Hg] Charis Darden [facility] Work Phone: 05-15-2017 07:41-0500 Height 175.3 cm Charis Darden [facility] Work Phone: 05-15-2017 07:41-0500 Pulse (Heart Rate) 47 /min Charisana Darden [facility] Work Phone: 05-15-2017 07:41-0500 Pulse Oximetry 94 % Charis Darden [facility] Work Phone: 05-15-2017 07:41-0500 Respiratory Rate 16 /min Charisana Darden [facility] Work Phone: 05-15-2017 07:41-0500 Weight 75.75 kg Charisana Darden [facility] Work Phone: Encounters Encounter Date Encounter Type Care Provider Facility Start: 04-12-2021 Refill Balbina young DO Work Phone: [facility] Primary Care Physicians Procedures Date Procedure Procedure Detail Performing Clinician Start: 07-21-2019 Radex wrist complete minimum 3 views Osvaldo Schwartz Work Phone: Start: 01-21-2019 Adult depression screening assessment Balbina Fontenot Start: 11-25-2018 12 lead ECG Balbina post Work Phone: Start: 11-25-2018 Adult depression screening assessment Balbina Fontenot Plan of Treatment Date Care Activity Detail Author Start: 05-15-2027 Tetanus vaccination [facility] Start: 02-01-2022 History and physical examination, annual for health maintenance Wellness Visit [facility] Start: 12-02-2021 Depression Remission Assessment (PHQ9) Depression Remission Assessment (PHQ9) [facility] Start: 01-04-2021 History and physical examination, annual for health maintenance Wellness Visit [facility] Start: 01-04-2021 End: 01-04-2021 Patient encounter procedure 01/04/2021 Office Visit Primary Care Balbina Fontenot, [address] [place] [address] Dr [address] [place] [address] [facility] Start: 12-08-2020 Influenza vaccination Sequential Influenza Vaccine (#1) [facility] Start: 01-22-2020 Depression screening using PHQ-9 (Patient Health Questionnaire 9) score DEPRESSION SCREENING (PHQ9) [facility] Start: 12-09-2019 Influenza vaccination given Sequential Influenza Vaccine (#1) [facility] Start: 11-26-2019 Depression screening using PHQ-9 (Patient Health Questionnaire 9) score DEPRESSION SCREENING (PHQ9) [facility] Start: 11-26-2019 History and physical examination, annual for health maintenance Wellness Visit [facility] Start: 11-22-2019 Depression Remission Assessment (PHQ9) Depression Remission Assessment (PHQ9) [facility] Start: 02-25-2019 End: 02-25-2019 Office Visit 02/25/2019 Office Visit Primary Care Balbina Fontenot, [address] Farmer [address] [place] [id number] [phone] [facility] Start: 12-08-2018 Influenza vaccination given Sequential Influenza Vaccine (#1) [facility] Start: 11-16-2018 History and physical examination, annual for health maintenance Wellness Visit [facility] Start: 12-08-2017 Influenza vaccination SEQUENTIAL INFLUENZA VACCINE (#1) [facility] Start: 2006 Hepatitis C antibody, confirmatory test Hepatitis C Screening [facility] Start: 2006 Hepatitis C screening Hepatitis C Screening [facility] Start: 12-22-2003 HIV screening HIV Screening [facility] Start: 2000 COVID-19 Vaccine (1) COVID-19 Vaccine (1) [facility] Start: 1988 Screening for substance abuse SUBSTANCE ABUSE SCREENING (AUDIT-C) [facility] End: 11-26-2019 Complete blood count (hemogram) panel - Blood by Automated count CBC Lab Routine Annual physical exam Dizziness 1 Occurrences starting 11/25/2018 until 11/26/2019 [facility] Immunizations Immunization Date Immunization Notes Care Provider Fa ciliata 04-11-2021 Pfizer SARS-CoV-2 Vaccination Jacinto Guadarrama MA [facility] 04-11-2021 COVID-19 vacc,mRNA,Pfizer,,PF, (PFIZER-BIONTECH COVID-19 VACCINE) injection Jacinto Guadarrama MA [facility] 02-01-2021 influenza, injectabl e, quadrivalent, preservative free Balbina Fontenot DO Work Phone: [facility] 02-01-2021 flu vacc [id number] 6 mos up,PF, (FLUZONE QUAD) injection Balbina Fontenot DO Work Phone: [facility] 05-15-2017 tetanus toxoid, redu gini diphtheria toxoid, and acellular pertussis vaccine, adsorbed; Translations: [TDAP] Charis Darden [facility] 11-17-2011 hepatitis B vaccine, adult dosage Balbina Fontenot DO Work Phone: [facility] 11-17-2011 tetanus toxoid, redu gini diphtheria toxoid, and acellular pertussis vaccine, adsorbed Balbina Fontenot DO Work Phone: [facility] Payers Date Payer Category Payer Unknown [id number] 2019 Unknown SUHA MCCARTHY/PREF/HMO/PPO xxxxxxxxxxxx 2019-Present xxxxxxxxxxxx [id number] 2019 Unknown [id number] 2019 Unknown SUHA MCCARTHY/PREF/HMO/PPO [id number] 2019-Present [phone] [address] [place] [address] [id number] 2015 Unknown xxxxxxxxx [id number] 1988 Unknown [id number] 1988 Unknown [id number] 1988 Unknown [id number] 1988 Unknown [id number] 1988 Unknown [id number] Unknown [id number] Social History Date Type Detail Facility Start: 06-13-2016 End: 05-15-2017 Tobacco smoking status NHIS Never smoker [facility] Start: 1990 Sex Assigned At Not on file [facility] [employer] Work Phone: Start: 02-25-2019 End: 02-01-2021 Alcohol intake Current drinker of alcohol (finding) [facility] Start: 01-21-2019 End: 02-01-2021 History SDOH Social Connections Get Together 3 [facility] Start: 11-25-2018 End: 02-01-2021 History SDOH Food Worry 1 [facility] Start: 06-13-2016 Alcohol Comment 2-3 drinks 2-3 times a week [facility] Start: 06-13-2016 End: 01-05-2020 Tobacco use and exposure Never used [facility] Start: 01-05-2020 End: 02-01-2021 History SDOH Financial 5 [facility] Start: 01-05-2020 End: 02-01-2021 History SDOH Transport Med 2 [facility] Exposure to SARS-CoV -2 (event) Not sure [facility] Start: 11-25-2018 History SDOH Social Connections Get Together 4 [facility] History of Present illness Narrative 02-03-2021 [...] Flu HPI 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 This note was written partially with Nuvyyo dictation software. Though attempts are made to [...] difficult Somewhat difficult documented in this encounter [facility] Instructions 02-01-2021 Patient Instructions Note Date [...] Log into your personal health record on [email or web address] and enter P975 in the Education box to learn more about Neck: Exercises. Current as of: October 07, 2020 Content Version: 13.0 [employer]. Care instructions adapted under license by your healthcare professional. If you have questions about a medical condition or this instruction, always ask your healthcare professional. [employer] disclaims any warranty or liability for your [...] Log into your personal health record on [email or web address] and enter J942 in the Education box to learn more about Learning About Sleeping Well. Current as of: September 22, 2020 Content Version: 13.0 [employer]. Care instructions adapted under license by your healthcare professional. If you have questions about a medical condition or this instruction, always ask your healthcare professional. [employer] disclaims any warranty or liability for your use of this information. documented in this encounter [facility] Instructions 02-01-2021 Patient Instructions Note Date [...] Log into your personal health record on [email or web address] and enter P975 in the Education box to learn more about Neck: Exercises. Current as of: October 07, 2020 Content Version: 13.0 [employer]. Care instructions adapted under license by your healthcare professional. If you have questions about a medical condition or this instruction, always ask your healthcare professional. [employer] disclaims any warranty or liability for your [...] Log into your personal health record on [email or web address] and enter J942 in the Education box to learn more about Learning About Sleeping Well. Current as of: September 22, 2020 Content Version: 13.0 [employer]. Care instructions adapted under license by your healthcare professional. If you have questions about a medical condition or this instruction, always ask your healthcare professional. [employer] disclaims any warranty or liability for your use of this information. 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 This note was written partially with Nuvyyo dictation software. Though attempts are made to [...] difficult Somewhat difficult documented in this encounter [facility] Evaluation note Note Date & Type Note Facility documented in this encounter [facility] Evaluation note Note Date & Type Note Facility documented in this encounter [facility] Evaluation note Note Date & Type Note Facility documented in this encounter [facility] Evaluation note Note Date & Type Note Facility documented in this encounter [facility] Evaluation note Note Date & Type Note Facility documented in this encounter [facility] Diagnosis Annual physical exam - Prima ry Routine general medical examination at a health care facility Diagnosis Annual physical exam - Prima ry Routine general medical examination at a [facility] facility Gastroesophageal reflux dise ase, esophagitis [...] exam Routine general medical examination at a [facility] facility Gastroesophageal reflux disease, esophagitis presence [...] FoundDocuments on File Type Date Recorded Patient Quality Specialist Expl anation Advance Directives and Livin g Will 07/21/2019 12:23 PM Documents on File Type Date Recorded Patient Quality Specialist Expl anation Advance Directives and Living Will [...] Exam HPI 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 This note was written partially with Nuvyyo dictation software. Though attempts are made to [...] medications. This note was written partially with Nuvyyo dictation software. Though attempts are made to [...] currently Drug Use: None Immunizations: Works in [employer] The following portions of the patient's history [...] medications. This note was written partially with Dacudaation software. 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 He also reports some marital issues, although specific details were not discussed. He has been trying to deal with the stress by going to jainism more often and exercising. He also has [...] medications. This note was written partially with Nuvyyo dictation software. Though attempts are made to [...] Zoloft. Planning on taking a trip to [facility] in the spring - will follow up [...] to take a trip in June 08 [facility] Per CDC recommendations, consider Hep A vaccine, typhoid vaccine Irish Encephalitis also recommended though expensive, will discuss with patient Malaria and yellow fever very uncommon in [facility], discuss prophylaxis Subjective: Jacob Rojas is [...] medications. This note was written partially with Nuvyyo dictation software. Though attempts are made to proofread, errors in grammar or spelling may be present. documented in this encounter Additional Source Comments (unrecognized sect ion and content) No Status Records FoundNo Status Records FoundNo Status Records Found INFORMATION SOURCE (unrecogn ized section and content) DATE CREATED AUTHOR AUTHOR'S ORGANIZ ATION 03/18/2020 [facility] DATE CREATED AUTHOR AUTHOR'S ORGANIZ ATION 04/16/2021 [facility] Reason for Visit (unrecogniz ed [...] Care Teams (unrecognized sec tion and content) Double Reamer Operator Relationship Specialty Start Date End Date Balbina Fontenot, DO [address] [place] [address] Dr Farmer [facility] [place] [address] PCP - General Family Medicine 10/16/18 Alena Hung MD [address] [place] [address] Dr [address] [place] [id number] PCP - JUAN ANTONIO Attributed Provider - [employer] 05/10/20 04/08/50 Charis Darden MD [address] [facility] [address] [place] [address] JUAN ANTONIO Attributed Provider - Family Medicine Family Medicine 06/13/16 Double Reamer Operator Relationship Specialty Start Date End Date Balbina Fnotenot DO [address] [place] [address] Dr Farmer [facility] [place] [address] PCP - General Family Medicine 10/16/18 Alena Hung MD [address] [place] [address] Dr Farmer [facility] [place] [address] PCP - JUAN ANTONIO Attributed Provider - [employer] 05/10/20 04/07/21 Charis Darden MD [address] [facility] [address] [place] [address] JUAN ANTONIO Attributed Provider - Family Medicine Family Medicine 06/13/16 Double Reamer Operator Relationship Specialty Start Date End Date Balbina Fontenot, [address] [place] [address] [address] [place] [address] PCP - [facility] 10/16/18 Charis Darden MD [address] [facility] [address] [place] [address] JUAN ANTONIO Attributed Provider - [facility] 06/13/16 Double Reamer Operator Relationship Specialty Start Date End Date Balbina Fontenot, [address] [place] [address] [address] [place] [address] PCP - [facility] 10/16/18 Charis Darden MD [address] [facility] [address] [place] [address] JUAN ANTONIO Attributed Provider - [facility] 06/13/16 FOR RECORDS PERTAINING TO PATIENTS WHO [...] BE BASED ON THE PRIMARY CLINICAL RECORDS. [employer] provides no warranty or guarantee of the accuracy or completeness of information in this document.
[2023-04-07] MEDS: 0.9% Normal Saline (1000mL) 1,000 ML 100 ML IV ×3 (03:25→22:10)
[2023-04-07] MEDS: Piperacil/Tazobactam 3.375 GM in 0.9% Normal Saline (50mL MB+) 50 ML IV ×3 (08:00→22:06)
[2023-04-07] MEDS: 0.9% Saline Lock 10 ML Syringe IV ×2 (08:01→22:06)
--- NOTE | 2023-04-07 08:19 | PCM.HP.STD ---
HPI - General General Date of Admission: 04/07/23 HPI Narrative JACOB CHATTERJEE, is a 32 M who presents with abdominal pain that started yesterday. Patient had abdominal pain and then he started to have nausea and vomiting. He reports the pain is in his lower abdomen. He also says he has chills but denied fever. [facility] Medical History ADHD Alcohol abuse Alcohol use disorder Back problem Bone fracture Drug abuse GERD (gastroesophageal reflux disease) History of emotional problems Kidney stones Opioid use disorder Home Medications cholecalciferol (vitamin D3) 125 mcg (5,000 unit) tablet 125 mcg PO DAILY vitamin 06/28/22 [History Last Taken 04/06/23] multivitamin 1 tab PO DAILY vitamin 06/28/22 [History Last Taken 04/06/23] lisdexamfetamine 20 mg capsule 20 mg PO QAM adhd 30 days #30 caps 03/22/23 [Rx Last Taken Unknown] risankizumab-rzaa 150 mg/mL subcutaneous pen injector (Skyrizi) 150 mg subcut .q90 days psorosis 04/07/23 [History Last Taken Unknown] sertraline 100 mg tablet 100 mg PO DAILY depression 04/07/23 [History Last Taken 04/06/23] Allergy/AdvReac Type Severity Reaction Status Date / Time No Known Allergies Allergy Verified 04/07/23 00:34 Family History Other Alcoholism High cholesterol Hypertension Surgical History no surgical history Social History Smoking Status: Never smoker alcohol intake: never substance use type: does not use what type of physical activity do you participate in: none frequency: 1-2 times per week ROS Constitutional Constitutional: Reports chills; Denies anorexia, fatigue or fever(s) Eyes Eyes: Denies blurry vision ENT HEENT: Denies abnormal hearing Cardiovascular Cardiovascular: Denies chest pain Respiratory/Chest Respiratory/Chest: Denies cough or dyspnea Gastrointestinal Gastrointestinal: Reports abdominal pain, nausea and vomiting; Denies constipation or diarrhea Genitourinary Genitourinary: Denies change in urinary stream Musculoskeletal Musculoskeletal: Denies abnormal gait Integumentary Integumentary: Denies jaundice Neurologic Neurologic: Denies abnormal gait Psychiatric Psychiatric: Denies anxiety Endocrine Endocrinology: Denies flushing Hematologic/Lymphatic Hematologic/Lymphatic: Denies easy bleeding Vital Signs Vital Signs Vital Signs: 04/07/23 00:33 04/07/23 01:55 04/07/23 01:59 Temperature 97.6 F L 98.3 F 98.3 F Temperature Source Oral Temporal Pulse Rate 66 71 71 Respiratory Rate 18 15 15 Respiratory Effort Respiratory Depth Respiratory Pattern Blood Pressure 140/80 H 109/68 109/68 Blood Pressure Mean 100 81 81 Blood Pressure Source Blood Pressure Position Blood Pressure Location Pulse Ox 97 94 94 Oxygen Delivery Method Room Air Room Air 04/07/23 02:32 04/07/23 02:44 04/07/23 08:03 Temperature 97.6 F L Temperature Source Oral Pulse Rate 75 Respiratory Rate 17 Respiratory Effort Normal Non-Labored Normal Non-Labored Respiratory Depth Normal Normal Respiratory Pattern Normal Normal Blood Pressure 107/62 Blood Pressure Mean 77 Blood Pressure Source Monitor Blood Pressure Position Semi-Fowlers Blood Pressure Location Right Arm Pulse Ox 95 Oxygen Delivery Method Room Air Room Air 04/07/23 08:12 Temperature 97.9 F Temperature Source Oral Pulse Rate 55 L Respiratory Rate 16 Respiratory Effort Respiratory Depth Respiratory Pattern Blood Pressure 102/61 Blood Pressure Mean 74 Blood Pressure Source Monitor Blood Pressure Position Semi-Fowlers Blood Pressure Location Left Arm Pulse Ox 94 Oxygen Delivery Method Room Air Weight Weight: 164 lb 10.965 oz Body Mass Index (BMI) 0.0 Physical Exam Const oriented x3 and no apparent distress Resp normal respiratory effort GI soft to palpation Palpation: tender RLQ Results Lab / Micro Data 04/07/23 00:40 04/07/23 00:40 Labs: Laboratory Results - last 24 hr 04/07/23 00:40: WBC 10.0, RBC 5.15, Hgb 15.2, Hct 44.1, MCV 85.6, MCH 29.5, MCHC 34.5, RDW Std Deviation 37.7, RDW Coeff of Kath 12.0, Plt Count 325, MPV 8.8, Immature Gran % (Auto) 0.200, Neut % (Auto) 46.1 L, Lymph % (Auto) 42.6 H, [place] % (Auto) 8.7, Eos % (Auto) 1.6, Baso % (Auto) 0.8, Absolute Neuts (auto) 4.6, Absolute Lymphs (auto) 4.26, Nucleated RBC % 0, Sodium 140, Potassium 3.2 L, Chloride 104, Carbon Dioxide 30.0, Anion Gap 6, BUN 20 H, Creatinine 1.07, Estim Creat Clear Calc 94.11, Est GFR (MDRD) Af Amer 102, Est GFR (MDRD) Non-Af 84, BUN/Creatinine Ratio 18.7, Glucose 112 H, Calcium 9.4, Total Bilirubin 0.30, AST 14 L, ALT 25, Alkaline Phosphatase 90, Total Protein 7.6, Albumin 4.0, Globulin 3.6, Albumin/Globulin Ratio 1.1, Lipase 32 04/07/23 01:32: Urine Color Yellow, Urine Clarity Clear, Urine pH 7.0, Ur Specific [place] 1.010, Urine Protein Negative, Urine Glucose (UA) Normal, Urine Ketones Negative, Urine Occult Blood Negative, Urine Nitrite Negative, Urine Bilirubin Negative, Urine Urobilinogen Normal, Ur Leukocyte Esterase Negative, Urine RBC 0 SEEN, Urine WBC 0 SEEN, Ur Squamous Epith Cells 0 SEEN, Urine Bacteria 0 SEEN, Urine Mucus 0 SEEN Imagaing Radiology Impression Abdomen/Pelvis CT 04/07/23 00:51 IMPRESSION: 1. Appendicitis with no evidence of perforation. 2. Other nonurgent findings within body of report. N.B. : The above Results were Read Back by Wilber Beyer MD to Dr Nicholas Stapleton MD, and understanding confirmed on 04/07/2023 02:02:21 (ET). Electronically Signed: Wilber Beyer MD at 2:03 EST , ADDENDUM: 04/07/23 0209 IMPRESSION: 1. Appendicitis with no evidence of perforation. 2. Other nonurgent findings within body of report. N.B. : The above Results were Read Back by Wilber Beyer MD to Dr Nicholas Stapleton MD, and understanding confirmed on 04/07/2023 02:02:21 (ET). Electronically Signed: Wilber Beyer MD at 2:03 EST , Assessment & Plan Assessment/Plan (1) Acute appendicitis: QUALIFIERS: Acute appendicitis type: unspecified acute appendicitis type Qualified Code(s): K35.80 - Unspecified acute appendicitis PLAN: The patient has lower abdominal pain. CT scan revealed acute appendicitis. Patient was given antibiotics and admitted overnight and he will be taken this morning for surgery. I discussed at laparoscopic appendectomy with the patient in detail. I discussed the risks including but not limited to bleeding, infection, injury to other organs such as the bowel or bladder or ureter. Patient understands all of the risks and is willing to proceed with surgery. William Lara MD Pager: [facility] [address] [place] [address], [address] [place] [address] Office:
[2023-04-07] MEDS: Bupivacaine 0.25% 30 ML Vial (09:38)
--- NOTE | 2023-04-07 09:44 | OP.PCM_ITS ---
Report of Operation Date of Procedure: 04/07/23 Pre-Operative Diagnosis: Acute appendicitis Post-Operative Diagnosis: Acute appendicitis and cardiac arrest Surgery/Procedure Performed:: Laparoscopic appendectomy Type of Anesthesia: General/Regional Specimen's removed: Appendix Estimated Blood Loss (mL): 5 Description of Procedure: The patient was brought into the operating room and general anesthesia was induced. The left arm was tucked and the abdomen was prepped and draped in usual sterile fashion. A small midline incision was made superior to the umbilicus and deepened to the level of the fascia. The fascia was elevated and incised. The peritoneum was also elevated and incised. A finger sweep was performed and a balloon trocar was placed into the abdomen and inflated. The abdomen was insufflated to 15 mmHg and the camera was inserted and the abdomen was inspected for any injuries upon entering the abdomen. There were none. The patient was placed in Trendelenburg position and a 5 mm ports placed in the left lower quadrant and suprapubic areas under direct visualization. Next using atraumatic bowel graspers the appendix was identified. The appendix was grasped and elevated and Enseal was used to take down the mesoappendix. A stapler was used to come across the base of the appendix. The appendix was then placed in Endo Catch bag and removed through the umbilical incision. After the appendix was in the bag the patient became bradycardic in the 30s. The caps were removed from the ports and the air was allowed to desufflate from the abdomen but the patient continued to bradycardia down and became asystolic. Pulse was checked and there was no carotid pulse. CPR was initiated. Patient was given atropine and compressions were started. At the 2-minute rhythm check the patient did have return of pulse and rhythm on the monitor. We allowed a drug to circulate and once his pressure was back to normal and his pulse is back to normal the abdomen was reinsufflated. The camera was reinserted into the abdomen. Staple line had some oozing and titanium clips were used to stop the oozing. The blood clots were suctioned. The staple line was inspected and found to be hemostatic and intact. The 2 5 mm ports are removed under direct visualization. The balloon trocar was deflated and removed and all the air was removed from the abdomen. The umbilical incision fascia was closed with an 0 Vicryl [id number] suture. The incisions were then irrigated with saline and dried. Local anesthetic was injected into the incision sites. The skin incisions were then closed with interrupted 4-0 Monocryl suture and Steri- Strips. Bandages were applied and the patient was awoken and taken to PACU in stable condition. Chest x-ray and EKG and troponin will be obtained. Complications The patient had sudden bradycardia and then asystole and required ACLS resuscitation. He was given atropine and compressions were initiated. During the first rhythm check he had return of spontaneous circulation. He had a good carotid and femoral pulse and his heart rate came back to normal. Admit VTE Documentation VTE Mechan Device Prophylaxis: SCD's
--- NOTE | 2023-04-07 10:10 | RAD_ITS ---
EXAM: XR CHEST, 1 VIEW CLINICAL INDICATION: s/p CPR TECHNIQUE: Frontal view of the chest. COMPARISON: No relevant prior studies available. FINDINGS: LUNGS AND PLEURAL SPACES: Bilateral infrahilar pulmonary opacity may represent pneumonia, atelectasis or aspiration. HEART: Normal heart size. MEDIASTINUM: No mediastinal or hilar mass. BONES/JOINTS: No acute abnormality. RAD/Chest 1 View (Portable) IMPRESSION: Bilateral infrahilar pulmonary opacities which may represent pneumonia, atelectasis or aspiration Electronically Signed: Jorge Zamarripa MD at 11:42 EST ,
--- NOTE | 2023-04-07 10:15 | PN_ITS ---
Progress Note Patient had cardiac arrest during surgery preceded by bradycardia. He did have a round of compressions and then had return of spontaneous circulation. He is doing well in PACU at the current time. He is not complaining of any pain or chest pressure. EKG was normal. First troponin is being drawn now and another 1 will be drawn in 4 hours. I will admit the patient for observation and keep him here tonight on cardiac telemetry and check a magnesium and a chest x-ray as well. William Lara MD Pager: [facility] [address] [place] [address], [address] [place] [address] Office:
--- OUTSIDE RECORDS SUMMARY | 2023-04-07 10:22 | XMS RPT_ITS | CCD ---
Author Name Unknown Address [address] [place] [address] Organization [facility] Care Team Providers Care Manager Environmental Health Name Role Phone Charis Darden Unavailable [phone] Jacob Hernández Unavailable [phone] NIKOLAY JOYCE Attending Unavailable NIKOLAY JOYCE Referring Unavailable BALBINA FONTENOT Primary Care Unavailable Balbina Fontenot Primary Care Provider [phone] Charis Darden Unavailable BALBINA FONTENOT Primary Care Unavailable GREG GOMEZ Referring UnavailGREG Perez Admitting Unavaila NELSON Sosa Admitting Unavailable BALBINA FONTENOT Primary Care Unavailable NELSON LOO Referring Unavailable Jacob Hernández Unavailable Nikolay Joyce Unavailable Carmine Ventura Unavailable Balbina Fontenot DO Primary Care Provider [phone] Charis Darden MD Unavailable Alena Hung MD Unavailable [phone] Alena Hung MD Unavailable Alena Hung MD [...] conjunction with the immunization order to satisfy [place] Board of Pharmacy Positive ID requirements for [...] 175.3 cm Balbina Fontenot DO Work Phone: [facility] 02-01-2021 09:11-0400 Body mass index (BMI) [Ratio] 25.84 kg/m2 Balbina Fontenot DO Work Phone: [facility] 02-01-2021 09:11-0400 Body temperature 98.49 [degF] Balbina Fontenot DO Work Phone: [facility] 02-01-2021 09:11-0400 Body weight 79.38 kg Balbina Fontenot DO Work Phone: [facility] 02-01-2021 09:11-0400 Diastolic blood pressure 67 mm[Hg] Balbina Fontenot DO Work Phone: [facility] 02-01-2021 09:11-0400 Heart rate 67 /min Balbina Fontenot DO Work Phone: [facility] 02-01-2021 09:11-0400 Respiratory rate 18 /min Balbina Fontenot DO Work Phone: [facility] 02-01-2021 09:11-0400 SaO2% (BldA) [Mass fraction] 96 % Balbina Fontenot DO Work Phone: [facility] 02-01-2021 09:11-0400 Systolic blood pressure 108 mm[Hg] Balbina Fontenot DO Work Phone: [facility] 02-23-2020 13:06-0500 BMI (Body Mass Index) 25.1 kg/m2 Balbina Fontenot [facility] 02-23-2020 13:06-0500 Body Temperature 97.59 [degF] Balbina Fontenot [facility] 02-23-2020 13:06-0500 Body weight 77.11 kg Balbina Fontenot [facility] 02-23-2020 13:06-0500 BP Diastolic 55 mm[Hg] Balbina Fontenot [facility] 02-23-2020 13:06-0500 BP Systolic 115 mm[Hg] Balbina Fontenot [facility] 02-23-2020 13:06-0500 Height 175.3 [facility] 13:06-0500 Pulse (Heart Rate) 60 /[facility] 13:06-0500 Pulse Oximetry 97 % [facility] 01-05-2020 15:19-0400 BMI (Body Mass Index) 24.72 kg/m2 [facility] 01-05-2020 15:19-0400 Body Temperature 98.29 [degF] Balbina Fontenot [facility] 01-05-2020 15:19-0400 Body weight 75.93 kg [facility] 01-05-2020 15:19-0400 BP Diastolic 75 mm[Hg] [facility] 01-05-2020 15:19-0400 BP Systolic 115 mm[Hg] Balbina Fontenot [facility] 01-05-2020 15:19-0400 Height 175.3 cm Balbina Fontenot [facility] 01-05-2020 15:19-0400 Pulse (Heart Rate) 55 /min Balbina Fontenot [facility] 01-05-2020 15:19-0400 Pulse Oximetry 96 % [facility] 02-25-2019 08:08-0500 BMI (Body Mass Index) 25.77 kg/m2 [facility] 02-25-2019 08:08-0500 Body Temperature 98.2 [degF] [facility] 02-25-2019 08:08-0500 Body weight 78.02 kg [facility] 02-25-2019 08:08-0500 BP Diastolic 73 mm[Hg] [facility] 02-25-2019 08:08-0500 BP Systolic 128 mm[Hg] [facility] 02-25-2019 08:08-0500 Height 174 cm [facility] 02-25-2019 08:08-0500 Pulse (Heart Rate) 52 /min [facility] 02-25-2019 08:08-0500 Pulse Oximetry 94 % [facility] 02-25-2019 08:08-0500 Respiratory Rate 16 /min [facility] 01-21-2019 14:55-0400 BMI (Body Mass Index) 25.88 kg/m2 Balbina [facility] 01-21-2019 14:55-0400 Body Temperature 98.29 [degF] [facility] 01-21-2019 14:55-0400 Body weight 78.34 kg [facility] 01-21-2019 14:55-0400 BP Diastolic 83 mm[Hg] Balbina [facility] 01-21-2019 14:55-0400 BP Systolic 146 mm[Hg] [facility] 01-21-2019 14:55-0400 Height 174 cm [facility] 01-21-2019 14:55-0400 Pulse (Heart Rate) 76 /min [facility] 01-21-2019 14:55-0400 Pulse Oximetry 97 % [facility] 11-25-2018 13:01-0400 BMI (Body Mass Index) 24.83 kg/m2 Balbina Fontenot [facility] 11-25-2018 13:01-0400 Body Temperature 98.2 [degF] Balbina Fontenot [facility] 11-25-2018 13:01-0400 Body weight 75.16 kg Balbina Fontenot [facility] 11-25-2018 13:01-0400 BP Diastolic 74 mm[Hg] Balbina Fontenot [facility] 11-25-2018 13:01-0400 BP Systolic 115 mm[Hg] Balbina Fontenot [facility] 11-25-2018 13:01-0400 Height 174 cm Balbina Fontenot [facility] 11-25-2018 13:01-0400 Pulse (Heart Rate) 49 /min Balbina Fontenot [facility] 11-25-2018 13:01-0400 Pulse Oximetry 98 % Balbina Fontenot [facility] 11-16-2017 09:04-0400 BMI (Body Mass Index) 24.63 kg/m2 Jacob Hernández [facility] 11-16-2017 09:04-0400 Body Temperature 98.2 [degF] Jacob Hernández [facility] 11-16-2017 09:04-0400 BP Diastolic 73 mm[Hg] Jacob Hernández [facility] 11-16-2017 09:04-0400 BP Systolic 116 mm[Hg] Jacob Hernández [facility] 11-16-2017 09:04-0400 Height 172.7 cm Jacob Hernández [facility] 11-16-2017 09:04-0400 Pulse (Heart Rate) 56 /min Jacob Hernández [facility] 11-16-2017 09:04-0400 Pulse Oximetry 95 % Jacob Hernández [facility] 11-16-2017 09:04-0400 Weight 73.48 kg Jacob Hernández [facility] 05-15-2017 07:41-0500 BMI (Body Mass Index) 24.66 kg/m2 Charis Darden [facility] Work Phone: 05-15-2017 07:41-0500 Body Temperature 97.7 [degF] Charis Darden [facility] Work Phone: 05-15-2017 07:41-0500 BP Diastolic 70 mm[Hg] Charis Darden [facility] Work Phone: 05-15-2017 07:41-0500 BP Systolic 105 mm[Hg] Charis Darden [facility] Work Phone: 05-15-2017 07:41-0500 Height 175.3 cm Charis Darden [facility] Work Phone: 05-15-2017 07:41-0500 Pulse (Heart Rate) 47 /min Charisana Darden [facility] Work Phone: 05-15-2017 07:41-0500 Pulse Oximetry 94 % Charis Darden [facility] Work Phone: 05-15-2017 07:41-0500 Respiratory Rate 16 /min Charisana Darden [facility] Work Phone: 05-15-2017 07:41-0500 Weight 75.75 kg Charisana Darden [facility] Work Phone: Encounters Encounter Date Encounter Type Care Provider Facility Start: 04-12-2021 Refill Balbina young DO Work Phone: [facility] Primary Care Physicians Procedures Date Procedure Procedure Detail Performing Clinician Start: 07-21-2019 Radex wrist complete minimum 3 views Osvaldo Schwartz Work Phone: Start: 01-21-2019 Adult depression screening assessment Balbina Fontenot Start: 11-25-2018 12 lead ECG Balbina post Work Phone: Start: 11-25-2018 Adult depression screening assessment Balbina Fontenot Plan of Treatment Date Care Activity Detail Author Start: 05-15-2027 Tetanus vaccination [facility] Start: 02-01-2022 History and physical examination, annual for health maintenance Wellness Visit [facility] Start: 12-02-2021 Depression Remission Assessment (PHQ9) Depression Remission Assessment (PHQ9) [facility] Start: 01-04-2021 History and physical examination, annual for health maintenance Wellness Visit [facility] Start: 01-04-2021 End: 01-04-2021 Patient encounter procedure 01/04/2021 Office Visit Primary Care Balbina Fontenot, [address] [place] [address] Dr [address] [place] [address] [facility] Start: 12-08-2020 Influenza vaccination Sequential Influenza Vaccine (#1) [facility] Start: 01-22-2020 Depression screening using PHQ-9 (Patient Health Questionnaire 9) score DEPRESSION SCREENING (PHQ9) [facility] Start: 12-09-2019 Influenza vaccination given Sequential Influenza Vaccine (#1) [facility] Start: 11-26-2019 Depression screening using PHQ-9 (Patient Health Questionnaire 9) score DEPRESSION SCREENING (PHQ9) [facility] Start: 11-26-2019 History and physical examination, annual for health maintenance Wellness Visit [facility] Start: 11-22-2019 Depression Remission Assessment (PHQ9) Depression Remission Assessment (PHQ9) [facility] Start: 02-25-2019 End: 02-25-2019 Office Visit 02/25/2019 Office Visit Primary Care Balbina Fontenot, [address] Farmer [address] [place] [id number] [phone] [facility] Start: 12-08-2018 Influenza vaccination given Sequential Influenza Vaccine (#1) [facility] Start: 11-16-2018 History and physical examination, annual for health maintenance Wellness Visit [facility] Start: 12-08-2017 Influenza vaccination SEQUENTIAL INFLUENZA VACCINE (#1) [facility] Start: 2006 Hepatitis C antibody, confirmatory test Hepatitis C Screening [facility] Start: 2006 Hepatitis C screening Hepatitis C Screening [facility] Start: 12-22-2003 HIV screening HIV Screening [facility] Start: 2000 COVID-19 Vaccine (1) COVID-19 Vaccine (1) [facility] Start: 1988 Screening for substance abuse SUBSTANCE ABUSE SCREENING (AUDIT-C) [facility] End: 11-26-2019 Complete blood count (hemogram) panel - Blood by Automated count CBC Lab Routine Annual physical exam Dizziness 1 Occurrences starting 11/25/2018 until 11/26/2019 [facility] Immunizations Immunization Date Immunization Notes Care Provider Fa ciliata 04-11-2021 Pfizer SARS-CoV-2 Vaccination Jacinto Guadarrama MA [facility] 04-11-2021 COVID-19 vacc,mRNA,Pfizer,,PF, (PFIZER-BIONTECH COVID-19 VACCINE) injection Jacinto Guadarrama MA [facility] 02-01-2021 influenza, injectabl e, quadrivalent, preservative free Balbina Fontenot DO Work Phone: [facility] 02-01-2021 flu vacc [id number] 6 mos up,PF, (FLUZONE QUAD) injection Balbina Fontenot DO Work Phone: [facility] 05-15-2017 tetanus toxoid, redu gini diphtheria toxoid, and acellular pertussis vaccine, adsorbed; Translations: [TDAP] Charis Darden [facility] 11-17-2011 hepatitis B vaccine, adult dosage Balbina Fontenot DO Work Phone: [facility] 11-17-2011 tetanus toxoid, redu gini diphtheria toxoid, and acellular pertussis vaccine, adsorbed Balbina Fontenot DO Work Phone: [facility] Payers Date Payer Category Payer Unknown [id number] 2019 Unknown SUHA MCCARTHY/PREF/HMO/PPO xxxxxxxxxxxx 2019-Present xxxxxxxxxxxx [id number] 2019 Unknown [id number] 2019 Unknown SUHA MCCARTHY/PREF/HMO/PPO [id number] 2019-Present [phone] [address] [place] [address] [id number] 2015 Unknown xxxxxxxxx [id number] 1988 Unknown [id number] 1988 Unknown [id number] 1988 Unknown [id number] 1988 Unknown [id number] 1988 Unknown [id number] Unknown [id number] Social History Date Type Detail Facility Start: 06-13-2016 End: 05-15-2017 Tobacco smoking status NHIS Never smoker [facility] Start: 1990 Sex Assigned At Not on file [facility] [employer] Work Phone: Start: 02-25-2019 End: 02-01-2021 Alcohol intake Current drinker of alcohol (finding) [facility] Start: 01-21-2019 End: 02-01-2021 History SDOH Social Connections Get Together 3 [facility] Start: 11-25-2018 End: 02-01-2021 History SDOH Food Worry 1 [facility] Start: 06-13-2016 Alcohol Comment 2-3 drinks 2-3 times a week [facility] Start: 06-13-2016 End: 01-05-2020 Tobacco use and exposure Never used [facility] Start: 01-05-2020 End: 02-01-2021 History SDOH Financial 5 [facility] Start: 01-05-2020 End: 02-01-2021 History SDOH Transport Med 2 [facility] Exposure to SARS-CoV -2 (event) Not sure [facility] Start: 11-25-2018 History SDOH Social Connections Get Together 4 [facility] History of Present illness Narrative 02-03-2021 [...] Flu HPI 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 This note was written partially with Wipster dictation software. Though attempts are made to [...] difficult Somewhat difficult documented in this encounter [facility] Instructions 02-01-2021 Patient Instructions Note Date [...] Log into your personal health record on [email or web address] and enter P975 in the Education box to learn more about Neck: Exercises. Current as of: October 07, 2020 Content Version: 13.0 [employer]. Care instructions adapted under license by your healthcare professional. If you have questions about a medical condition or this instruction, always ask your healthcare professional. [employer] disclaims any warranty or liability for your [...] Log into your personal health record on [email or web address] and enter [email or web address] in the Education box to learn more about Learning About Sleeping Well. Current as of: September 22, 2020 Content Version: 13.0 [employer]. Care instructions adapted under license by your healthcare professional. If you have questions about a medical condition or this instruction, always ask your healthcare professional. [employer] disclaims any warranty or liability for your use of this information. documented in this encounter [facility] Instructions 02-01-2021 Patient Instructions Note Date [...] Log into your personal health record on [email or web address] and enter [email or web address] in the Education box to learn more about Neck: Exercises. Current as of: October 07, 2020 Content Version: 13.0 [employer]. Care instructions adapted under license by your healthcare professional. If you have questions about a medical condition or this instruction, always ask your healthcare professional. [employer] disclaims any warranty or liability for your [...] Log into your personal health record on [email or web address] and enter [email or web address] in the Education box to learn more about Learning About Sleeping Well. Current as of: September 22, 2020 Content Version: 13.0 [employer]. Care instructions adapted under license by your healthcare professional. If you have questions about a medical condition or this instruction, always ask your healthcare professional. [employer] disclaims any warranty or liability for your use of this information. 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 This note was written partially with Wipster dictation software. Though attempts are made to [...] difficult Somewhat difficult documented in this encounter [facility] Evaluation note Note Date & Type Note Facility documented in this encounter [facility] Evaluation note Note Date & Type Note Facility documented in this encounter [facility] Evaluation note Note Date & Type Note Facility documented in this encounter [facility] Evaluation note Note Date & Type Note Facility documented in this encounter [facility] Evaluation note Note Date & Type Note Facility documented in this encounter [facility] Diagnosis Annual physical exam - Prima ry Routine general medical examination at a health care facility Diagnosis Annual physical exam - Prima ry Routine general medical examination at a [facility] facility Gastroesophageal reflux dise ase, esophagitis [...] exam Routine general medical examination at a [facility] facility Gastroesophageal reflux disease, esophagitis presence [...] FoundDocuments on File Type Date Recorded Patient Rigger Third Expl anation Advance Directives and Livin g Will 07/21/2019 12:23 PM Documents on File Type Date Recorded Patient Rigger Third Expl anation Advance Directives and Living Will [...] Exam HPI 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 This note was written partially with Wipster dictation software. Though attempts are made to [...] medications. This note was written partially with Wipster dictation software. Though attempts are made to [...] currently Drug Use: None Immunizations: Works in [employer] The following portions of the patient's history [...] medications. This note was written partially with Haieration software. 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 He also reports some marital issues, although specific details were not discussed. He has been trying to deal with the stress by going to [employer] more often and exercising. He also has [...] medications. This note was written partially with Wipster dictation software. Though attempts are made to [...] Zoloft. Planning on taking a trip to [facility] in the spring - will follow [...] to take a trip in June 08 [facility] Per CDC recommendations, consider Hep A vaccine, typhoid vaccine Korean Encephalitis also recommended though expensive, will discuss with patient Malaria and yellow fever very uncommon in [facility], discuss prophylaxis Subjective: Jacob Rojas is a [...] medications. This note was written partially with Wipster dictation software. Though attempts are made to proofread, errors in grammar or spelling may be present. documented in this encounter Additional Source Comments (unrecognized sect ion and content) No Status Records FoundNo Status Records FoundNo Status Records Found INFORMATION SOURCE (unrecogn ized section and content) DATE CREATED AUTHOR AUTHOR'S ORGANIZ ATION 03/18/2020 [facility] DATE CREATED AUTHOR AUTHOR'S ORGANIZ ATION 04/16/2021 [facility] Reason for Visit (unrecogniz ed [...] Care Teams (unrecognized sec tion and content) Manager Environmental Health Relationship Specialty Start Date End Date Balbina Fontenot, DO [address] [place] [address] Dr Farmer [facility] [place] [address] PCP - General Family Medicine 10/16/18 Alena Hung MD [address] [place] [address] Dr [address] [place] [address] PCP - JUAN ANTONIO Attributed Provider - [employer] 05/10/20 04/08/50 Charis Darden MD [address] [facility] [address] [place] [address] JUAN ANTONIO Attributed Provider - Family Medicine Family Medicine 06/13/16 Manager Environmental Health Relationship Specialty Start Date End Date Balbina Fontenot DO [address] [place] [address] Dr Farmer [facility] [place] [address] PCP - General Family Medicine 10/16/18 Alena Hung MD [address] [place] [address] Dr Farmer [facility] [place] [address] PCP - JUAN ANTONIO Attributed Provider - [employer] 05/10/20 04/07/21 Charis Darden MD [address] [facility] [address] [place] [address] JUAN ANTONIO Attributed Provider - Family Medicine Family Medicine 06/13/16 Manager Environmental Health Relationship Specialty Start Date End Date Balbina Fontenot, [address] [place] [address] Dr Farmer [address] [place] [address] PCP - [facility] 10/16/18 Charis Darden MD [address] [facility] [address] [place] [address] JUAN ANTONIO Attributed Provider - [facility] 06/13/16 Manager Environmental Health Relationship Specialty Start Date End Date Balbina Fontenot, [address] [place] [address] Dr [address] [place] [address] PCP - [facility] 10/16/18 Charis Darden MD [address] [facility] [address] [place] [address] JUAN ANTONIO Attributed Provider - [facility] 06/13/16 FOR RECORDS PERTAINING TO [...] BE BASED ON THE PRIMARY CLINICAL RECORDS. [employer] provides no warranty or guarantee of the accuracy or completeness of information in this document.
[2023-04-07] MEDS: Lactated Ringers 1,000 ML 15 ML IV (10:30)
[2023-04-07 10:46] LABS: Magnesium 1.8 mg/dL (1.6-2.6); Troponin-I HS 6 pg/mL (3.0-78.0)
[2023-04-07] MEDS: Potassium Chloride Oral Tablet 20 MEQ PO (10:59)
[2023-04-07] MEDS: Ketorolac 15 MG/ML Vial IV ×2 (12:00→22:06)
[2023-04-07 13:39] LABS: Troponin-I HS 6 pg/mL (3.0-78.0)
[2023-04-08 00:30] VITALS: BP 96/47; PULSE 56; RESP 16; TEMP 36.6; O2SAT 97
[2023-04-08 04:00] VITALS: BP 112/58; PULSE 54; RESP 16; TEMP 36.4; O2SAT 96
[2023-04-08] MEDS: Piperacil/Tazobactam 3.375 GM in 0.9% Normal Saline (50mL MB+) 50 ML IV (05:52)
[2023-04-08] MEDS: Ketorolac 15 MG/ML Vial IV (05:53)
[2023-04-08 06:26] LABS: Absolute Neutrophil Count 3.2 X10^3/uL (2.0-7.7); Basophil# 0.07 X10^3/uL; Eosinophil# 0.17 X10^3/uL; Eosinophils% 2.5 % (0-5); Hematocrit 40.6 % (40-54); Hemoglobin 13.3 g/dL (13.0-16.5); Lymphocyte % 39.5 % (19-41); Mean Corp Hgb Conc 32.8 g/dL (32-36); Mean Corpuscular Hgb 29.9 pg (27.0-32.0); Mean Corpuscular Volume 91.2 fL (80-94); Mean Platelet Vol. 9.2 fl (6.2-12.0); Monocyte# 0.63 X10^3/uL; Monocyte% 9.2 % (0-10); NRBC Flagged by Analyzer 0 % (0-5); Neutrophil # 3.24 X10^3/uL (2.7-7.7); Neutrophil % 47.5 % (47-70); Platelet Count 251 K/mm3 (150-450); RBC Distribution Width CV 12.3 % (11.6-14.6); RBC Distribution Width SD 41.1 fl (35.1-43.9); Red Blood Count 4.45 M/mm3 (4.6-6.2); White Blood Count 6.8 K/mm3 (4.4-11.0)
[2023-04-08 06:44] LABS: Anion Gap 1 (5-15); BUN 12 mg/dL (7-18); BUN/Creat Ratio 13.1 RATIO (10-20); Calcium,Total 8.2 mg/dL (8.5-10.1); Chloride 112 mmol/L (98-107); Creatinine, Serum 0.91 mg/dL (0.70-1.30); EST Glomerular Filtration Rate 101 mL/min (>60); Est Glom Filt Rate - Afr Amer 122 mL/min (>60); Estimated Creatinine Clearance 110.66 ml/min; Glucose 110 mg/dL (74-106); Potassium 3.9 mmol/L (3.5-5.1); Sodium Level 142 mmol/L (136-145)
--- NOTE | 2023-04-08 08:03 | PCM.PN.SRG ---
Subjective Subjective Patient reports he is tolerating diet and passing gas. He reports minimal chest discomfort. Abdominal pain is well-controlled on p.o. meds. Objective Data Objective Data Vital Signs: Vital Signs Temp Pulse Resp BP Pulse Ox O2 Del Method 97.5 F L 54 L 16 112/58 L 96 Room Air 04/08/23 04:00 04/08/23 04:00 04/08/23 04:00 04/08/23 04:00 04/08/23 04:00 04/08/23 04:00 Oxygen Delivery Method Room Air Weight: 164 lb Body Mass Index (BMI) 24.9 Intake & Output: Intake and Output for Last 24 Hours 04/06/23 04/07/23 04/08/23 23:59 23:59 23:59 Intake Total 3223 / 3573 700 / 700 Output Total 1100 / 1100 Balance 3223 / 3173 -400 / -400 Lab / Micro Data 04/08/23 05:32 04/08/23 05:32 Labs: Laboratory Results - last 24 hr 04/07/23 10:12: Magnesium 1.8, Troponin I High Sens 6 04/07/23 12:50: Troponin I High Sens 6 04/08/23 05:32: WBC 6.8, RBC 4.45 L, Hgb 13.3, Hct 40.6, MCV 91.2 D, MCH 29.9, MCHC 32.8, RDW Std Deviation 41.1, RDW Coeff of Kath 12.3, Plt Count 251, MPV 9.2, Immature Gran % (Auto) 0.300, Neut % (Auto) 47.5, Lymph % (Auto) 39.5, [place] % (Auto) 9.2, Eos % (Auto) 2.5, Baso % (Auto) 1.0, Absolute Neuts (auto) 3.2, Absolute Lymphs (auto) 2.70, Nucleated RBC % 0, Sodium 142, Potassium 3.9, Chloride 112 H, Carbon Dioxide 29.0, Anion Gap 1 L, BUN 12, Creatinine 0.91, Estim Creat Clear Calc 110.66, Est GFR (MDRD) Af Amer 122, Est GFR (MDRD) Non-Af 101, BUN/Creatinine Ratio 13.1, Glucose 110 H, Calcium 8.2 L Radiography Diagnostic Testing: Radiology Impression Chest X-Ray 04/07/23 10:10 IMPRESSION: Bilateral infrahilar pulmonary opacities which may represent pneumonia, atelectasis or aspiration Electronically Signed: Jorge Zamarripa MD at 11:42 EST , Physical Exam Const oriented x3 and no apparent distress Resp normal respiratory effort GI soft to palpation and non-tender Assessment & Plan Assessment/Plan (1) Acute appendicitis: QUALIFIERS: Acute appendicitis type: unspecified acute appendicitis type Qualified Code(s): K35.80 - Unspecified acute appendicitis PLAN: Patient is doing well for laparoscopic appendectomy. He is tolerating a diet and I will discharge him home. The patient did have cardiac arrest and brief CPR during surgery but this was likely from the drugs and pneumoperitoneum. His troponins were negative as well as EKG and chest x-ray. William Lara MD Pager: [facility] [address] [place] [address], [address] [place] [address] Office:
--- NOTE | 2023-04-08 08:05 | DS.PCM_ITS ---
Providers Date of Admission: 04/07/23 Primary Care Physician: Jaz Bro DO Reason For Visit: APPENDICITIS Diagnosis Discharge Diagnosis (1) Acute appendicitis: Status: Acute Code(s): K35.80 - Unspecified acute appendicitis Qualifiers: Acute appendicitis type: unspecified acute appendicitis type Qualified Code(s): K35.80 - Unspecified acute appendicitis Plan: Patient is doing well for laparoscopic appendectomy. He is tolerating a diet and I will discharge him home. The patient did have cardiac arrest and brief CPR during surgery but this was likely from the drugs and pneumoperitoneum. His troponins were negative as well as EKG and chest x-ray. William Lara MD Pager: [facility] [address] [place] [address], [address] [place] [address] Office: Medications at Discharge Home Medications cholecalciferol (vitamin D3) 125 mcg (5,000 unit) tablet 125 mcg PO DAILY vitamin 06/28/22 multivitamin 1 tab PO DAILY vitamin 06/28/22 lisdexamfetamine 20 mg capsule 20 mg PO QAM adhd 30 days #30 caps 03/22/23 risankizumab-rzaa 150 mg/mL subcutaneous pen injector (Skyrizi) 150 mg subcut .q90 days psorosis 04/07/23 sertraline 100 mg tablet 100 mg PO DAILY depression 04/07/23 acetaminophen 325 mg tablet 650 mg (2 x 325 mg) PO Q4H PRN PRN Pain 1-10 Or Fever #0 tabs 04/08/23 ibuprofen 600 mg tablet 600 mg PO Q6H PRN PRN Pain 1-10 Or Fever #0 tabs 04/08/23 Hospital Course Operations appendectomy Summary of Care Provided Hospital Course: Patient was admitted with acute appendicitis and the following morning he was taken for surgery. During surgery it was complicated by a severe bradycardia which turned into asystole requiring CPR for less than 2 minutes. He had spontaneous return of circulation and the surgery was completed. Following surgery the patient was alert for 24 hours on telemetry and troponins were chec ked and he had an EKG which were all normal. Following morning he was tolerating a diet and doing well and discharged home. Weight / BMI Weight Weight: 164 lb Body Mass Index (BMI) 24.9 ABG / Lab / Microbiology Data 04/08/23 05:32 04/08/23 05:32 Laboratory: Laboratory Results - last 24 hr 04/07/23 10:12: Magnesium 1.8, Troponin I High Sens 6 04/07/23 12:50: Troponin I High Sens 6 04/08/23 05:32: WBC 6.8, RBC 4.45 L, Hgb 13.3, Hct 40.6, MCV 91.2 D, MCH 29.9, MCHC 32.8, RDW Std Deviation 41.1, RDW Coeff of Kath 12.3, Plt Count 251, MPV 9.2, Immature Gran % (Auto) 0.300, Neut % (Auto) 47.5, Lymph % (Auto) 39.5, Jenkins % (Auto) 9.2, Eos % (Auto) 2.5, Baso % (Auto) 1.0, Absolute Neuts (auto) 3.2, Absolute Lymphs (auto) 2.70, Nucleated RBC % 0, Sodium 142, Potassium 3.9, Chloride 112 H, Carbon Dioxide 29.0, Anion Gap 1 L, BUN 12, Creatinine 0.91, Estim Creat Clear Calc 110.66, Est GFR (MDRD) Af Amer 122, Est GFR (MDRD) Non-Af 101, BUN/Creatinine Ratio 13.1, Glucose 110 H, Calcium 8.2 L Radiography Diagnostic Testing: Radiology Impression Chest X-Ray 04/07/23 10:10 IMPRESSION: Bilateral infrahilar pulmonary opacities which may represent pneumonia, atelectasis or aspiration Electronically Signed: Jorge Zamarripa MD at 11:42 EST , D/C Instructions Discharge Diet: Light diet - advance as tolerated Discharge Activity: May Not Drive (for 2-3 days.) and May Shower Lifting Restrictions: 20 lbs for 2 weeks Call your doctor if your incision/area has: Continuous Slow Oozing, Sudden Increased Bleeding, Increased Pain/ Swelling, Increased Redness and Foul Smelling Discharge Call your doctor if you observe: Fever of 101 or Higher Suture Line Care: Avoid Pulling/Pushing and Avoid Pinching/Bending Remove Dressing in: 2 days (Remove clear bandages in 2 days, remove Steri-Strips in 7 to 10 days) Cleanse incision/area with: Soap & Water Additional Dressing/Incision Instructions: Keep dressing clean and dry. Change or remove dressing in 2 days. Leave steri strips for 1 week. May protect with a gauze bandaid. Please Follow Up With: William Lara MD When: Please call to schedule 2 week follow up appointment. [phone] Meaningful Use Info Meaningful Use Diagnoses (Choose all that apply): None applicable Discharge Plan Admission Admit Date/Time: 04/07/23 02:59 Attending Provider: William Lara Primary Care Provider: Jaz Bro Instructions Additional Instructions / Restrictions: Alternate ibuprofen and Tylenol for pain. Call the hospital and page me if you need anything stronger for breakthrough pain. Discharge Orders/Prescriptions Prescriptions: New acetaminophen 325 mg Tablet 650 mg PO Q4H PRN PRN (Reason: Pain 1-10 Or Fever) Qty: 0 0RF ibuprofen 600 mg Tablet 600 mg PO Q6H PRN PRN (Reason: Pain 1-10 Or Fever) Qty: 0 0RF Continued multivitamin Tablet 1 tab PO DAILY cholecalciferol (vitamin D3) 125 mcg (5,000 unit) tablet 125 mcg PO DAILY lisdexamfetamine 20 mg capsule 20 mg PO QAM 30 Days Qty: 30 0RF Skyrizi 150 mg/mL pen injector 150 mg SUBCUT .q90 days Patient Comments: last dose nov sertraline 100 mg tablet 100 mg PO DAILY Referrals / Follow Up: Jaz Bro DO [Primary Care Provider] - Disposition Disposition (needs filled in before D/C Order can be placed): Home, Self Care
[2023-04-08] MEDS: 0.9% Normal Saline (1000mL) 1,000 ML 100 ML IV (08:38)
--- NOTE | 2023-04-10 09:20 | APP_PTH ---
PATHOLOGY RESULTS PATIENT: JACOB CHATTERJEE LOC: MS3 U#:[id number] AGE/SX: 32/M ROOM: TN315 RE04/07/[address]: Dr. William Lara MD : 1990 BED: 1 DIS: 04/08/2023 SPEC #: [id number] RECD: 04/10/23 11:42 STATUS: ANGELA BECK #: [id number] CLAUDIA: 04/10/23 09:[address]: William Lara DEPT: SURGICAL PATHOLOGY RECD BY: Mary Benavidez ENTERED: 04/10/23 11:43 SP TYPE: APPENDIX OTHR DR: Jaz Bro DO Tissues: Appendix, NOS Procedures: Surgery Specimen Level III HEADER OPERATION: Laparoscopic appendectomy PRE-OP DIAGNOSIS: Acute appendicitis TISSUE SUBMITTED: Appendix MICROSCOPIC DIAGNOSIS Appendix, appendectomy: Acute appendicitis. Acute serositis. Benign periappendiceal lymph node. AM:sheri 04/11/2023 MICROSCOPIC DESCRIPTION Slides are reviewed. GROSS DESCRIPTION Received in fixative is one container labeled with the patient's name and designated appendix. The specimen consists of a C-shaped appendix measuring 7.5 cm in length and up to 0.6 cm in diameter. The attached periappendiceal adipose tissue measures up to 2.0 cm in width. The serosa is congested. No obvious perforation is identified. The lumen contains fecal material. No fecalith is identified. The entire appendix is submitted in four cassettes. Cassette 1 contains the tip and proximal portion of the appendix. / SJ:sheri 04/10/2023 TC:2 CPT: 15015
== END 2023-04-08 11:05 | disposition home or self-care (01) ==
LOC: ED 01:40 → MS3 08:01
PROVIDERS: Anesthesiology; Admitting Provider Surgery; Emergency Provider Emergency Medicine; PCP Family Medicine; Referring Provider Surgery; Visit Provider Surgery
PROC: 0DTJ4ZZ Resection of Appendix, Percutaneous Endoscopic Approach (ICD-10-PCS; CPT 44970; principal; 2023-04-07 09:00)
DX: K35.80 Unspecified acute appendicitis (principal); R00.1 Bradycardia, unspecified; F90.9 Attention-deficit hyperactivity disorder, unspecified type; I97.711 Intraoperative cardiac arrest during other surgery; K21.9 Gastro-esophageal reflux disease without esophagitis; Z79.899 Other long term (current) drug therapy
CPT/HCPCS: 44970; 00840; 36415; 71045; 74177; 80048; 80053; 81001; 83690; 83735; 84484; 85025; 88304; 93005; 96361; 96365; 96366; 96375; 96376; 99221; 99284; J7030; J7050; J7120; Q9967; A4216; C1760; G0378; J2405

== ENCOUNTER → 2023-07-05 | Outpatient (CLI) | payer OTHER, SELFPAY ==
--- NOTE | 2023-07-05 16:35 | STRESSREP ---
Stress Test Report Exercise stress test. 32-year-old male with a history of chest pain Stress protocol: Resting EKG demonstrates normal sinus rhythm with a rate of 61 bpm bpm resting blood pressure is 100/72 mmHg. The patient exercised according to the regular Bassem protocol for a total duration of 12 minutes attaining a maximum heart rate of 184 bpm which was 98% of maximum predicted heart rate; the maximum workload was 13.4 metabolic equivalents. At rest there were no ST or T wave changes noted to suggest ischemia and at peak exercise upsloping ST changes only were noted which did not meet the criteria for ischemia. No clinical angina was noted the test was terminated due to the target heart rate being achieved/fatigue. The peak blood pressure was 112/60 mmHg. Rate-pressure product was 20,600. Conclusion: Normal exercise stress test at a high workload No clinical angina
== END | disposition home or self-care (01) ==
PROVIDERS: PCP Family Medicine; Referring Provider Family Medicine; Visit Provider Family Medicine
DX: I46.9 Cardiac arrest, cause unspecified (principal)
CPT/HCPCS: 93017